=== PATIENT | male | born 1945 | race Caucasian/White ===

== ENCOUNTER 2018-12-06 10:18 | Day surgery (SDC) | payer MEDICARE, BC ==
[~2018-12-06] VITALS: Ht 170.2 cm; Wt 71.8 kg
[2018-12-06] VITALS (9 sets, daily range): BP systolic 107–171; BP diastolic 67–94
[2018-12-06] MEDS ORDERED: normal saline 1,000 ML IV SCH (10:35)
[2018-12-06] MEDS ORDERED: diphenhydrAMINE 25mg capsule PO PRN (10:35)
[2018-12-06] MEDS ORDERED: FOLI0.4T2 PO (11:24)
[2018-12-06] MEDS ORDERED: CHOL200052 PO (11:24)
[2018-12-06] MEDS ORDERED: CARV6.252 PO (11:24)
[2018-12-06] MEDS ORDERED: ALLO100T PO (11:24)
[2018-12-06] MEDS ORDERED: LISI-604 PO (11:24)
[2018-12-06] MEDS ORDERED: FURO40TA4 PO (11:24)
[2018-12-06] MEDS ORDERED: FERR-119 PO (11:24)
[2018-12-06] MEDS ORDERED: ASPI-611 PO (11:24)
[2018-12-06] MEDS ORDERED: CHOL2000 PO (11:24)
[2018-12-06] MEDS ORDERED: MULT-933 PO (11:24)
[2018-12-06] MEDS ORDERED: CYAN-51 PO (11:24)
[2018-12-06 11:31] LABS: EOSINOPHILS # (AUTO) 0.5 X10'3 (0-0.9); HEMATOCRIT 34.3 % (42.0-52.0); HEMOGLOBIN 11.6 g/dl (14.0-17.9); MEAN CORPUSCULAR HGB CONC 33.9 g/dL (33.0-36.5)
[2018-12-06 11:32] LABS: ANION GAP 13 (8-16); BLOOD UREA NITROGEN 54 MG/DL (7-18); BUN/CREATININE RATIO 22.3 (5.4-32.0); CALCIUM 9.9 MG/DL (8.5-10.1); CHLORIDE 103 MMOL/L (99-107); CREATININE 2.42 MG/DL (0.60-1.10); GLUCOSE 93 MG/DL (70-104); POTASSIUM 4.2 MMOL/L (3.5-5.1); SODIUM 142 MMOL/L (135-145); TOTAL CARBON DIOXIDE 25.6 MMOL/L (24-32); eGFR 26 ML/MIN
[2018-12-06 11:33] LABS: BASOPHILS # (AUTO) 0.1 X10'3 (0-0.2); BASOPHILS % (AUTO) 1.6 % (0-1); EOSINOPHILS % (AUTO) 5.9 % (0-6); LYMPHOCYTES # (AUTO) 1.3 X10'3 (1.1-4.8); LYMPHOCYTES % (AUTO) 14.6 % (21-51); MEAN CORPUSCULAR VOLUME 94.5 FL (78-98); MEAN PLATELET VOLUME 9.3 FL (7.4-10.4); MONOCYTES # (AUTO) 0.9 X10'3 (0-0.9); MONOCYTES % (AUTO) 9.6 % (2-12); NEUTROPHILS # (AUTO) 6.1 X10'3 (1.8-7.7); NEUTROPHILS % (AUTO) 68.3 % (42-75); PLATELET COUNT 289 X10'3 (140-440); RED BLOOD COUNT 3.63 X10'6 (4.70-6.10); RED CELL DISTRIBUTION WIDTH 15.9 % (11.5-14.5)
[2018-12-06] MEDS ORDERED: midazolam 2 mg/2 ml injection ONE ×2 (12:21→12:56)
[2018-12-06] MEDS ORDERED: iohexol 350MG/ML 100ml bottle IV ONE (12:21)
[2018-12-06] MEDS ORDERED: LIDOcaine 1% (10mg/ml)w/preservative injection 20ml MDV ONE (12:21)
[2018-12-06] MEDS ORDERED: fentaNYL/PF 50MCG/1 ML 2ML syringe ONE (12:21)
== END 2018-12-06 16:30 | disposition home or self-care (01) ==
LOC: SSTAY O 10:18
PROVIDERS: ATTEND Internal Medicine Cardiovascular Disease
DX: I42.0 Dilated cardiomyopathy (principal); I10 Essential (primary) hypertension; D64.9 Anemia, unspecified; F17.210 Nicotine dependence, cigarettes, uncomplicated; Z98.890 Other specified postprocedural states; Z72.89 Other problems related to lifestyle; Z79.899 Other long term (current) drug therapy
CPT/HCPCS: 36415; 80048; 85025; 85610; 93005; 93458; 99152; C1769; C1894; J1644; J2001; J2250; J3010; J7030; Q0163; Q9967; A4620; A6258; C1760

== ENCOUNTER 2020-10-09 08:29 | Inpatient (IN) | payer MEDICARE, BC ==
[~2020-10-09] VITALS: Ht 175.3 cm; Wt 61.4 kg
[~2020-10-09 08:29] MED LIST: ALLO100T PO; ASPI-611 PO; CARV6.252 PO; CHOL2000 PO; CHOL200052 PO; CYAN-51 PO; FERR-119 PO; FOLI0.4T6 PO; FURO40TA4 PO; LISI-790 PO; MULT-933 PO
[2020-10-09 09:35] LABS: BASOPHILS # (AUTO) 0.1 X10'3 (0-0.2); HEMOGLOBIN 8.5 g/dl (14.0-17.9); WHITE BLOOD COUNT 14.8 X10'3 (4.5-11.0)
[2020-10-09 09:36] LABS: BASOPHILS % (AUTO) 0.7 % (0-1); EOSINOPHILS # (AUTO) 0.3 X10'3 (0-0.9); EOSINOPHILS % (AUTO) 1.8 % (0-6); HEMATOCRIT 25.7 % (42.0-52.0); LYMPHOCYTES % (AUTO) 6.7 % (21-51); MEAN CORPUSCULAR HEMOGLOBIN 32.3 PG (27.0-31.0); MEAN CORPUSCULAR HGB CONC 33.1 g/dL (33.0-36.5); MEAN CORPUSCULAR VOLUME 97.7 FL (78-98); MONOCYTES # (AUTO) 1.5 X10'3 (0-0.9); MONOCYTES % (AUTO) 10.2 % (2-12); NEUTROPHILS % (AUTO) 80.6 % (42-75); PLATELET COUNT 626 X10'3 (140-440); RED BLOOD COUNT 2.64 X10'6 (4.70-6.10); RED CELL DISTRIBUTION WIDTH 15.2 % (11.5-14.5)
[2020-10-09] MEDS ORDERED: normal saline 1000ml 1,000 ML IV ONE (09:40)
[2020-10-09 09:43] LABS: PARTIAL THROMBOPLASTIN TIME 33 SECONDS (22-32)
[2020-10-09] MEDS ORDERED: vancomycin/NS 1 GM ADD-VANTAGE 250 ML IV ONE (09:50)
[2020-10-09] MEDS ORDERED: normal saline 1000ML IV soln IV ONE (09:50)
[2020-10-09] MEDS ORDERED: piperacillin/tazo 3.375gm/50ml 50 ML IV ONE (09:50)
[2020-10-09 10:16] LABS: ALANINE AMINOTRANSFERASE 12 U/L (12-78); ALBUMIN 2.4 G/DL (3.4-5.0); ALBUMIN/GLOBULIN RATIO 0.6 (1.1-1.5); ALKALINE PHOSPHATASE 63 IU/L (46-116); ANION GAP 13 (8-16); ASPARTATE AMINO TRANSFERASE 14 U/L (10-37); BILIRUBIN,TOTAL 0.5 MG/DL (0.1-1.0); BLOOD UREA NITROGEN 40 MG/DL (7-18); BUN/CREATININE RATIO 22.7 (5.4-32.0); CALCIUM 9.8 MG/DL (8.5-10.1); CHLORIDE 106 MMOL/L (99-107); CREATININE 1.76 MG/DL (0.60-1.10); GLUCOSE 105 MG/DL (70-104); MAGNESIUM 1.8 MG/DL (1.5-2.4); SODIUM 144 MMOL/L (135-145); TOTAL CARBON DIOXIDE 24.6 MMOL/L (24-32); TOTAL PROTEIN 6.6 G/DL (6.4-8.2); eGFR 38 ML/MIN
[2020-10-09 10:17] LABS: POTASSIUM 2.9 MMOL/L (3.5-5.1)
[2020-10-09] MEDS ORDERED: potassium Cl 20 mEq SR tablet PO ONE (10:25)
[2020-10-09] MEDS ORDERED: potassium Cl 10 mEq/100mL bag IV ONE (10:25)
[2020-10-09] MEDS ORDERED: iohexol 300mg/ml 100ml inj. ONE (10:29)
--- NOTE | 2020-10-09 12:10 | NUR ---
LAST SOLID FOOD THURSDAY AFTERNOON LAST LIQUID 0700 TODAY
[2020-10-09] MEDS ORDERED: CARV-50 PO (13:16)
[2020-10-09] MEDS ORDERED: LISI40TA13 PO (13:16)
[2020-10-09] MEDS ORDERED: [UNRECOGNIZED DRUG - CODE] PO (13:16)
[2020-10-09] MEDS ORDERED: METR-159 PO (13:16)
[2020-10-09] MEDS ORDERED: FURO40TA4 PO (13:16)
[2020-10-09] MEDS ORDERED: ALLO100T PO (13:16)
[2020-10-09] MEDS ORDERED: ondansetron/PF 4mg/2ml inj IV PRN (13:20)
[2020-10-09] MEDS ORDERED: acetaminophen 325mg tablet PO PRN (13:20)
[2020-10-09] MEDS ORDERED: magnesium 4gm in 100ml NS 100 ML IV PRN (13:20)
[2020-10-09] MEDS ORDERED: morphine 2 MG/ML inj. syringe IV PRN (13:20)
[2020-10-09] MEDS ORDERED: potassium Cl 20 mEq SR tablet PO PRN (13:20)
[2020-10-09] MEDS ORDERED: magnesium 2GM in 50ml NS 50 ML IV PRN (13:20)
[2020-10-09] MEDS ORDERED: magnesium hydroxide 30ml (MOM) UD suspension PO PRN (13:20)
[2020-10-09] MEDS ORDERED: potassium Cl 40MEQ/1/2NS 520ml 520 ML IV PRN ×2 (13:20)
[2020-10-09] MEDS ORDERED: normal saline 1000ml 1,000 ML IV SCH (13:20)
[2020-10-09] MEDS ORDERED: magnesium Cl slow-release 64mg tablet PO PRN (13:20)
[2020-10-09 13:21] LABS: CLARITY,URINE SLIGHTLY CLOUDY (Clear); COLOR,URINE YELLOW (Yellow); GLUCOSE, URINE NEGATIVE (Neg); KETONES,URINE NEGATIVE (Neg); LEUKOCYTE ESTERASE ,URINE MODERATE (Neg); NITRITES, URINE NEGATIVE (Neg); OCCULT BLOOD,URINE NEGATIVE (Neg); PH,URINE 5.5 (4.8-8.0); PROTEIN,URINE NEGATIVE (Neg); UROBILINOGEN,URINE 0.2 E.U/dL (0.2-1.0)
[2020-10-09 13:22] LABS: UA COLLECTION TYPE URINAL
[2020-10-09 13:26] LABS: WBC,URINE TNTC /HPF (0-4)
[2020-10-09 13:27] LABS: BACTERIA,URINE FEW /HPF (Neg); MUCUS STRANDS NONE SEEN /LPF (Neg); RBC,URINE NONE SEEN /HPF (0-2); SQUAMOUS EPITHELIAL CELL,UR NONE SEEN /LPF (FEW)
[2020-10-09 13:28] LABS: YEAST FEW /HPF (NEGATIVE)
[2020-10-09 14:10] VITALS: BP 137/87
[2020-10-09 14:16] LABS: HEMOGLOBIN A1C 5.6 % (4.5-6.2)
--- NOTE | 2020-10-09 14:25 | NUR ---
dr irwin at bedside and placed abdominal abcess drain: frothy white drainage: 350 ml so far
[2020-10-09 14:30] VITALS: BP 130/67
--- NOTE | 2020-10-09 14:32 | NUR ---
TOMAS CORDON TOOK PERITONEAL FLUID WITHLABEL: BRAVO IS AWARE THAT THE LABEL ON THE FLUID NEEDS TO BE FILLED OUT. I PLACED ORDERS FOR DR HARRIS FOR CULTURE OF FLUID
--- NOTE | 2020-10-09 14:33 | NUR ---
leanna drain to bulb sxn with site cdi
[2020-10-09] MEDS ORDERED: VANCOmycin 1250MG/NS 250ml Bag 250 ML IV ONE (14:35)
--- NOTE | 2020-10-09 16:00 | NUR ---
CALLING PHARMACY TO CLARIFY VANCOMYCIN DOSES, INFORMED ONE GRAM OF VANCOMYCIN IV STARTED AT 1108; DO NOT GIVE THE ORDERED 1250 MG VANCOMYCIN IV
[2020-10-09] MEDS: piperacillin/tazo 3.375gm/50ml 50 ML IV SCH (16:22)
[2020-10-09] MEDS: normal saline 1000ml 1,000 ML IV SCH (16:23)
[2020-10-09] MEDS ORDERED: LISI-790 PO (16:34)
[2020-10-09] MEDS ORDERED: FOLI0.4T6 PO (16:36)
[2020-10-09] MEDS ORDERED: CYAN-51 PO (16:36)
[2020-10-09] MEDS ORDERED: CHOL2000 PO (16:36)
[2020-10-09] MEDS ORDERED: ASPI-611 PO (16:36)
[2020-10-09] MEDS ORDERED: FERR325T32 PO (16:36)
[2020-10-09] MEDS ORDERED: MULT-933 PO (16:36)
[2020-10-09 17:59] VITALS: BP 117/52
[2020-10-09 18:04] VITALS: BP 117/52
--- NOTE | 2020-10-09 18:39 | NUR ---
Problems reprioritized. Patient report given, questions answered & plan of care reviewed with Patricia DELGADO.
--- NOTE | 2020-10-09 18:42 | NUR ---
Patient in room [facility] 348. I have received report from DANNY Laboy and had the opportunity to ask questions and assume patient care.
--- NOTE | 2020-10-09 18:42 | NUR ---
Patient in room [facility] 348. I have received report from DANNY Laboy and had the opportunity to ask questions and assume patient care.
[2020-10-09 20:00] VITALS: BP 145/59
[2020-10-09] MEDS: heparin, porcine 5000 units/ml vial SQ SCH (20:00)
[2020-10-09] MEDS ORDERED: ferrous sulfate 325mg tablet PO SCH (20:00)
[2020-10-09] MEDS: K and/or MAG REPLACEMENT MC SCH (20:00)
[2020-10-09] MEDS ORDERED: enoxaparin 40mg/0.4ml syringe SQ SCH (20:00)
[2020-10-09] MEDS: docusate sod 100mg capsule PO SCH (20:38)
[2020-10-09] MEDS: furosemide 40mg tablet PO SCH (20:41)
[2020-10-09] MEDS: carVEDilol 12.5mg tablet PO SCH (20:42)
[2020-10-09] MEDS: potassium Cl 20 mEq SR tablet PO PRN (20:53)
[2020-10-09] MEDS ORDERED: ferrous sulfate 325mg tablet PO ONE (23:25)
[2020-10-10] VITALS: BP 136/61
[2020-10-10] MEDS: piperacillin/tazo 3.375gm/50ml 50 ML IV SCH ×4 (00:37→23:14)
[2020-10-10] MEDS: normal saline 1000ml 1,000 ML IV SCH ×3 (01:55→23:15)
[2020-10-10] MEDS: potassium Cl 20 mEq SR tablet PO PRN (02:42)
[2020-10-10 05:49] LABS: BASOPHILS # (AUTO) 0.1 X10'3 (0-0.2); BASOPHILS % (AUTO) 0.7 % (0-1); EOSINOPHILS # (AUTO) 0.3 X10'3 (0-0.9); EOSINOPHILS % (AUTO) 1.7 % (0-6); HEMATOCRIT 23.5 % (42.0-52.0); HEMOGLOBIN 7.7 g/dl (14.0-17.9); LYMPHOCYTES # (AUTO) 0.8 X10'3 (1.1-4.8); LYMPHOCYTES % (AUTO) 4.4 % (21-51); MEAN CORPUSCULAR HEMOGLOBIN 32.2 PG (27.0-31.0); MEAN CORPUSCULAR HGB CONC 32.8 g/dL (33.0-36.5); MEAN CORPUSCULAR VOLUME 98.2 FL (78-98); MEAN PLATELET VOLUME 9.1 FL (7.4-10.4); MONOCYTES # (AUTO) 1.7 X10'3 (0-0.9); MONOCYTES % (AUTO) 9.5 % (2-12); NEUTROPHILS # (AUTO) 14.6 X10'3 (1.8-7.7); NEUTROPHILS % (AUTO) 83.7 % (42-75); PLATELET COUNT 588 X10'3 (140-440); RED BLOOD COUNT 2.39 X10'6 (4.70-6.10); RED CELL DISTRIBUTION WIDTH 15.3 % (11.5-14.5); WHITE BLOOD COUNT 17.4 X10'3 (4.5-11.0)
--- NOTE | 2020-10-10 06:21 | NUR ---
Problems reprioritized. Patient report given, questions answered & plan of care reviewed with DANNY Agudelo.
[2020-10-10 06:25] LABS: ALANINE AMINOTRANSFERASE 8 U/L (12-78); ALBUMIN/GLOBULIN RATIO 0.5 (1.1-1.5); ALKALINE PHOSPHATASE 61 IU/L (46-116); ANION GAP 13 (8-16); ASPARTATE AMINO TRANSFERASE 12 U/L (10-37); BILIRUBIN,TOTAL 0.4 MG/DL (0.1-1.0); BLOOD UREA NITROGEN 31 MG/DL (7-18); BUN/CREATININE RATIO 19.5 (5.4-32.0); CALCIUM 8.9 MG/DL (8.5-10.1); CHLORIDE 111 MMOL/L (99-107); CHOL/HDL RATIO 4.3 (0.00-4.99); CHOLESTEROL 102 MG/DL (0-200); CREATININE 1.59 MG/DL (0.60-1.10); GLUCOSE 125 MG/DL (70-104); HDL CHOLESTEROL 24 MG/DL (35-60); LDL CHOLESTEROL 50 MG/DL (50-100); MAGNESIUM 1.7 MG/DL (1.5-2.4); POTASSIUM 3.5 MMOL/L (3.5-5.1); SODIUM 144 MMOL/L (135-145); TOTAL PROTEIN 5.9 G/DL (6.4-8.2); TRIGLYCERIDES 101 MG/DL (20-135); eGFR 42 ML/MIN
[2020-10-10 07:03] VITALS: BP 121/55
--- NOTE | 2020-10-10 07:19 | NUR ---
Patient in room [facility] 348. I have received report from Tiesha Yuan RN and had the opportunity to ask questions and assume patient care.
[2020-10-10] MEDS: docusate sod 100mg capsule PO SCH (07:27)
[2020-10-10] MEDS: lisinopril 5mg tablet PO SCH (07:31)
[2020-10-10] MEDS: allopurinol 100mg tablet PO SCH (07:31)
[2020-10-10] MEDS: multivitamins, therapeutics tablet PO SCH (07:32)
[2020-10-10] MEDS: furosemide 40mg tablet PO SCH ×2 (07:32→20:00)
[2020-10-10] MEDS: aspirin 81mg tablet.DR PO SCH (07:32)
[2020-10-10] MEDS: cholecalciferol (vitamin D3) 1,000 unit (25mcg) tablet PO SCH (07:32)
[2020-10-10] MEDS: carVEDilol 12.5mg tablet PO SCH ×2 (07:32→20:02)
[2020-10-10] MEDS: cyanocobalamin 500mcg tablet PO SCH (07:32)
[2020-10-10] MEDS: folic acid 0.4mg tablet PO SCH (07:33)
[2020-10-10] MEDS: heparin, porcine 5000 units/ml vial SQ SCH ×2 (07:35→20:09)
[2020-10-10] MEDS ORDERED: enoxaparin 40mg/0.4ml syringe SUBCUT SCH (08:00)
[2020-10-10] MEDS: K and/or MAG REPLACEMENT MC SCH ×2 (08:00→20:00)
[2020-10-10] MEDS ORDERED: lisinopril 5mg tablet PO SCH (08:00)
--- NOTE | 2020-10-10 09:48 | NUR ---
PAGER ID: [phone] MESSAGE: [facility] 0113 Re: Stanton please call re: stool sample orders. Per your notes you want a Cdiff and and OP
[2020-10-10 11:00] VITALS: BP 133/60
[2020-10-10] MEDS: VANCOMYCIN 750MG IV in NS 250 ML IV SCH (11:12)
[2020-10-10] MEDS: ferrous sulfate 325mg tablet PO SCH ×2 (11:13→23:15)
[2020-10-10 11:43] LABS: OCCULT BLOOD STOOL NEGATIVE (Neg)
--- NOTE | 2020-10-10 12:47 | NUR ---
Malnutrition consult: Pt seen at bedside reports UBW 165 lbs with 30 lb wt loss over the last 6 months, current documented scaled wt is 135 lbs. 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 Pt endorses a good appetite which is evident with documented 75-100% PO intake on heart healthy diet. Pt states he is getting full from meals. Pt with no documented decrease in muscle strength or edema. No visible fat or muscle wasting. 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 Pt currently lacks a minimum of two criteria for malnutrition. Pt denies food allergies or difficulty chewing/swallowing. Pt reports he continues with diarrhea, pending test for C.diff per MD notes. Will continue to follow. Addendum: 10/10/20 at [address] Amended: Links added.
[2020-10-10 15:33] LABS: C DIFF ANTIGEN POSITIVE (NEGATIVE); C DIFF SPECIMEN=DIARRHEA? ACCEPTABLE; C DIFFICILE TOXINS A&B POSITIVE (Neg)
--- NOTE | 2020-10-10 16:28 | NUR ---
PAGER ID: [phone] MESSAGE: [facility] [id number] Re: [id number] Stanton + Cdiff please call
--- NOTE | 2020-10-10 17:21 | NUR ---
Tried to call patients Alena back at [phone] and her voicemail is not set up yet.
[2020-10-10 18:00] VITALS: BP 148/71
--- NOTE | 2020-10-10 18:32 | NUR ---
Problems reprioritized. Patient report given, questions answered & plan of care reviewed with Nata DELGADO.
--- NOTE | 2020-10-10 18:33 | NUR ---
Patient in room [facility] 348. I have received report from Jammie SHEIKH and had the opportunity to ask questions and assume patient care.
[2020-10-10] MEDS: vancomycin 125mg/5ml ORAL solution 5ml UD bottle PO SCH (20:00)
[2020-10-10] MEDS: lactobacillus rhamnosus 10,000 MMU CELLS/CAPSULE PO SCH (20:00)
[2020-10-10 22:00] VITALS: BP 151/73
[2020-10-10] MEDS: diatr meglu/diatrizoate 30ml oral sol.-(3 dose) bottle PO SCH (22:01)
[2020-10-11] VITALS (17 sets, daily range): BP systolic 128–159; BP diastolic 65–86
[2020-10-11] MEDS: vancomycin 125mg/5ml ORAL solution 5ml UD bottle PO SCH ×4 (02:00→20:43)
--- NOTE | 2020-10-11 06:24 | NUR ---
Problems reprioritized. Patient report given, questions answered & plan of care reviewed with
--- NOTE | 2020-10-11 06:40 | NUR ---
Patient in room [facility] 348. I have received report from Nata DELGADO and had the opportunity to ask questions and assume patient care.
[2020-10-11 06:45] LABS: BASOPHILS # (AUTO) 0.1 X10'3 (0-0.2); BASOPHILS % (AUTO) 0.8 % (0-1); EOSINOPHILS # (AUTO) 0.7 X10'3 (0-0.9); HEMATOCRIT 22.4 % (42.0-52.0); HEMOGLOBIN 7.5 g/dl (14.0-17.9); LYMPHOCYTES # (AUTO) 0.9 X10'3 (1.1-4.8); LYMPHOCYTES % (AUTO) 7.1 % (21-51); MEAN CORPUSCULAR HEMOGLOBIN 32.7 PG (27.0-31.0); MEAN CORPUSCULAR HGB CONC 33.3 g/dL (33.0-36.5); MEAN CORPUSCULAR VOLUME 98.5 FL (78-98); MEAN PLATELET VOLUME 9.2 FL (7.4-10.4); MONOCYTES # (AUTO) 1.4 X10'3 (0-0.9); MONOCYTES % (AUTO) 10.6 % (2-12); NEUTROPHILS # (AUTO) 10.2 X10'3 (1.8-7.7); NEUTROPHILS % (AUTO) 76.5 % (42-75); PLATELET COUNT 531 X10'3 (140-440); RED BLOOD COUNT 2.28 X10'6 (4.70-6.10); RED CELL DISTRIBUTION WIDTH 15.5 % (11.5-14.5); WHITE BLOOD COUNT 13.3 X10'3 (4.5-11.0)
[2020-10-11 06:54] LABS: % IRON SATURATION 59 % (11-46); IRON 41 UG/DL (53-167); TOTAL IRON BINDING CAPACITY 70 UG/DL (259-388)
[2020-10-11 07:25] LABS: ALANINE AMINOTRANSFERASE 8 U/L (12-78); ALBUMIN 1.9 G/DL (3.4-5.0); ALBUMIN/GLOBULIN RATIO 0.5 (1.1-1.5); ALKALINE PHOSPHATASE 50 IU/L (46-116); ANION GAP 11 (8-16); ASPARTATE AMINO TRANSFERASE 13 U/L (10-37); BILIRUBIN,TOTAL 0.3 MG/DL (0.1-1.0); BLOOD UREA NITROGEN 28 MG/DL (7-18); BUN/CREATININE RATIO 16.7 (5.4-32.0); CALCIUM 9.1 MG/DL (8.5-10.1); CHLORIDE 113 MMOL/L (99-107); CREATININE 1.68 MG/DL (0.60-1.10); FERRITIN 336 NG/ML (26-388); GLUCOSE 103 MG/DL (70-104); MAGNESIUM 1.7 MG/DL (1.5-2.4); POTASSIUM 3.8 MMOL/L (3.5-5.1); SODIUM 143 MMOL/L (135-145); TOTAL CARBON DIOXIDE 18.9 MMOL/L (24-32); TOTAL PROTEIN 5.8 G/DL (6.4-8.2); eGFR 40 ML/MIN
[2020-10-11] MEDS: heparin, porcine 5000 units/ml vial SQ SCH ×2 (08:00→20:44)
[2020-10-11] MEDS: K and/or MAG REPLACEMENT MC SCH ×2 (08:00→20:00)
[2020-10-11] MEDS: normal saline 1000ml 1,000 ML IV SCH (08:15)
[2020-10-11] MEDS: piperacillin/tazo 3.375gm/50ml 50 ML IV SCH ×3 (08:20→23:26)
[2020-10-11] MEDS: aspirin 81mg tablet.DR PO SCH (08:20)
[2020-10-11] MEDS: lactobacillus rhamnosus 10,000 MMU CELLS/CAPSULE PO SCH ×2 (08:21→20:43)
[2020-10-11] MEDS: allopurinol 100mg tablet PO SCH (08:21)
[2020-10-11] MEDS: cyanocobalamin 500mcg tablet PO SCH (08:21)
[2020-10-11] MEDS: folic acid 0.4mg tablet PO SCH (08:21)
[2020-10-11] MEDS: diatr meglu/diatrizoate 30ml oral sol.-(3 dose) bottle PO SCH ×2 (08:21→09:26)
[2020-10-11] MEDS: lisinopril 5mg tablet PO SCH (08:22)
[2020-10-11] MEDS: carVEDilol 12.5mg tablet PO SCH ×2 (08:22→20:43)
[2020-10-11] MEDS: furosemide 40mg tablet PO SCH ×2 (08:22→20:43)
[2020-10-11] MEDS: cholecalciferol (vitamin D3) 1,000 unit (25mcg) tablet PO SCH (08:22)
[2020-10-11] MEDS: multivitamins, therapeutics tablet PO SCH (08:22)
[2020-10-11] MEDS ORDERED: diatr meglu/diatrizoate 30ml oral sol.-(3 dose) bottle ONE (09:09)
--- NOTE | 2020-10-11 09:37 | NUR ---
pt off floor for CT scan
--- NOTE | 2020-10-11 10:30 | NUR ---
pt back on floor from CT
[2020-10-11] MEDS: ferrous sulfate 325mg tablet PO SCH ×2 (11:00→23:27)
[2020-10-11] MEDS: VANCOMYCIN 750MG IV in NS 250 ML IV SCH (11:00)
[2020-10-11] MEDS ORDERED: ondansetron/PF 4mg/2ml inj IV PRN ×2 (13:35→18:00)
[2020-10-11] MEDS ORDERED: morphine 4 MG/ML inj SYRINge IV PRN (13:35)
[2020-10-11] MEDS ORDERED: morphine 2 MG/ML inj. syringe IV PRN (13:35)
[2020-10-11] MEDS ORDERED: meperidine/PF 25mg/ml syringe IV PRN ×3 (13:35)
[2020-10-11] MEDS ORDERED: hydrALAZINE 20mg/ml inj. IV PRN (13:35)
[2020-10-11] MEDS ORDERED: proCHLORperazine 10 MG/2 ml inj IV PRN (13:35)
[2020-10-11] MEDS ORDERED: ringers solution, lacted 1,000 ML IV SCH (13:35)
[2020-10-11] MEDS ORDERED: labetalol 20mg/4ml (5mg/ml) syringe IV PRN (13:35)
[2020-10-11] MEDS ORDERED: acetaminophen 1,000mg/100ml IV 100 ML IV PRN (13:35)
[2020-10-11] MEDS ORDERED: sevoflurane 250ml liquid IH ONE (14:24)
[2020-10-11] MEDS ORDERED: albumin (Human) 5% 250ml BOTTLE IV ONE (14:24)
--- NOTE | 2020-10-11 14:24 | NUR ---
1600 Zosyn IVPB delivered to RR (bed 9) per CLINICAL TRIAL EDUCATOR request.
[2020-10-11] MEDS ORDERED: BUPIVAcaine/PF 2.5mg/ml (0.25%) 10ml vial ONE ×2 (14:26→14:27)
[2020-10-11] MEDS ORDERED: BUPIVACAINE liposomal/PF 13.3 MG/ML vial IM ONE ×2 (14:26→14:27)
[2020-10-11] MEDS ORDERED: midazolam 1 mg/ML 2ml injection ONE (14:31)
[2020-10-11] MEDS ORDERED: fentaNYL /PF 50mcg/ml 5ml ampule ONE (15:31)
[2020-10-11] MEDS ORDERED: dexamethasone sod phosphate 4mg/ml inj. ONE (15:32)
[2020-10-11] MEDS ORDERED: ondansetron/PF 4mg/2ml inj ONE (15:33)
[2020-10-11] MEDS ORDERED: rocuronium 10mg/ml inj IV ONE ×2 (15:33→16:05)
[2020-10-11] MEDS ORDERED: propofol inj 20 ML IV ONE ×2 (15:33)
[2020-10-11] MEDS ORDERED: LIDOcaine 1%/PF 5ML 10 MG/ML VIAL ONE (15:33)
[2020-10-11] MEDS ORDERED: albumin (Human) 5% 250ml 250 ML IV ONE (16:15)
[2020-10-11] MEDS ORDERED: glycopyrrolate 0.2mg/ml inj ONE (17:38)
[2020-10-11] MEDS ORDERED: neostigmine methylsulfate 1 MG/ML 10ml vial ONE (17:38)
--- NOTE | 2020-10-11 18:00 | NUR ---
Received from OR via bed, accompanied by Anesthesiologist erma and report given by Anesthesiolgist. pt sleepy, oxygenating well on 10 lpm o2 via mask, no resp distress noted. no c/o nausea at this time. very mild abd pain, pt had bilateral tap blocks. large abd dsg in place with medifix tape, 2 leanna drains to area with small amt of serosang output in each. fc patent, scds on. vss.
--- NOTE | 2020-10-11 18:28 | NUR ---
Patient in room [facility] 348. I have received report from DANNY Drummond and had the opportunity to ask questions and assume patient care. Patient is in recovery room at this time
--- NOTE | 2020-10-11 18:55 | NUR ---
Report called to receiving nurse. Transferred via bed Belongings in pt room, except he has his glaases and b hearing aids on at the time of transfer. pt pain is mild/mod, he was offered pain meds x 2 with no response. vss. mouth moisturizer provided. transferred back to to 3 surg in stable condition. Special Issues communicated to receiving nurse.
--- NOTE | 2020-10-11 19:45 | NUR ---
received post operative report on patient from Tiffany RN in recovery, had an opportunity to review chart and resume care
[2020-10-11] MEDS: HYDROmorphone inj. 0.5 MG/0.5 ML DISP.SYRIN IV PRN (20:45)
[2020-10-11] MEDS: HYDROcodone/acetaminophen 5mg/325mg tablet PO PRN (23:45)
[2020-10-12 00:28] VITALS: BP 159/85
[2020-10-12] MEDS: vancomycin 125mg/5ml ORAL solution 5ml UD bottle PO SCH ×4 (02:53→21:56)
[2020-10-12] MEDS: normal saline 1000ml 1,000 ML IV SCH ×4 (02:53→23:33)
[2020-10-12] MEDS: morphine 2 MG/ML inj. syringe IV PRN ×2 (03:00→21:56)
--- NOTE | 2020-10-12 06:11 | NUR ---
I agree with the documentation, assessments, and report that DANNY Onofre has given. Report was given to DANNY Drummond
--- NOTE | 2020-10-12 06:28 | NUR ---
Patient in room [facility] 348. I have received report from Kingston DELGADO and had the opportunity to ask questions and assume patient care.
--- NOTE | 2020-10-12 06:30 | NUR ---
Problems reprioritized. Patient report given, questions answered & plan of care reviewed with Bhanu DELGADO.
[2020-10-12 08:00] VITALS: BP 149/87
[2020-10-12] MEDS: cyanocobalamin 500mcg tablet PO SCH (08:00)
[2020-10-12] MEDS: piperacillin/tazo 3.375gm/50ml 50 ML IV SCH ×3 (08:07→23:35)
[2020-10-12] MEDS: heparin, porcine 5000 units/ml vial SQ SCH ×2 (08:08→21:57)
[2020-10-12] MEDS: allopurinol 100mg tablet PO SCH (08:08)
[2020-10-12] MEDS: cholecalciferol (vitamin D3) 1,000 unit (25mcg) tablet PO SCH (08:09)
[2020-10-12] MEDS: folic acid 0.4mg tablet PO SCH (08:09)
[2020-10-12] MEDS: lactobacillus rhamnosus 10,000 MMU CELLS/CAPSULE PO SCH ×2 (08:09→21:56)
[2020-10-12] MEDS: carVEDilol 12.5mg tablet PO SCH ×2 (08:09→21:56)
[2020-10-12] MEDS: aspirin 81mg tablet.DR PO SCH (08:09)
[2020-10-12] MEDS: multivitamins, therapeutics tablet PO SCH (08:10)
[2020-10-12] MEDS: lisinopril 5mg tablet PO SCH (08:10)
[2020-10-12] MEDS: furosemide 40mg tablet PO SCH ×2 (08:10→21:56)
[2020-10-12] MEDS: K and/or MAG REPLACEMENT MC SCH ×2 (08:34→20:00)
[2020-10-12 08:45] LABS: BASOPHILS # (AUTO) 0.1 X10'3 (0-0.2); BASOPHILS % (AUTO) 0.2 % (0-1); EOSINOPHILS % (AUTO) 0 % (0-6); HEMATOCRIT 32.3 % (42.0-52.0); HEMOGLOBIN 10.5 g/dl (14.0-17.9); LYMPHOCYTES # (AUTO) 0.8 X10'3 (1.1-4.8); LYMPHOCYTES % (AUTO) 2.7 % (21-51); MEAN CORPUSCULAR HEMOGLOBIN 31.2 PG (27.0-31.0); MEAN CORPUSCULAR HGB CONC 32.6 g/dL (33.0-36.5); MEAN CORPUSCULAR VOLUME 95.6 FL (78-98); MEAN PLATELET VOLUME 9.2 FL (7.4-10.4); MONOCYTES # (AUTO) 1.5 X10'3 (0-0.9); MONOCYTES % (AUTO) 5.2 % (2-12); NEUTROPHILS # (AUTO) 26.2 X10'3 (1.8-7.7); NEUTROPHILS % (AUTO) 91.9 % (42-75); PLATELET COUNT 573 X10'3 (140-440); RED BLOOD COUNT 3.38 X10'6 (4.70-6.10); RED CELL DISTRIBUTION WIDTH 16.8 % (11.5-14.5)
[2020-10-12 08:54] LABS: WHITE BLOOD COUNT 28.5 X10'3 (4.5-11.0)
--- NOTE | 2020-10-12 09:07 | NUR ---
PAGER ID: [phone] MESSAGE: arnold Kahlil Eid 348A critical lab result WBC 28.5, Dr. Blair notified verbally as well, stated expected result. Thanks, Bhanu 0255
[2020-10-12 09:17] LABS: ANISOCYTOSIS 1+; PLATELET ESTIMATE INCREASED; TOTAL CELLS COUNTED 100
[2020-10-12 09:18] LABS: SCHISTOCYTES FEW
[2020-10-12] MEDS ORDERED: VANCOMYCIN LEVEL IV ONE (10:30)
[2020-10-12 11:00] VITALS: BP 151/75
[2020-10-12 11:03] LABS: ALANINE AMINOTRANSFERASE 12 U/L (12-78); ALBUMIN/GLOBULIN RATIO 0.5 (1.1-1.5); ALKALINE PHOSPHATASE 45 IU/L (46-116); ANION GAP 12 (8-16); ASPARTATE AMINO TRANSFERASE 14 U/L (10-37); BILIRUBIN,TOTAL 0.4 MG/DL (0.1-1.0); BLOOD UREA NITROGEN 26 MG/DL (7-18); BUN/CREATININE RATIO 14.2 (5.4-32.0); CHLORIDE 113 MMOL/L (99-107); CREATININE 1.83 MG/DL (0.60-1.10); GLUCOSE 135 MG/DL (70-104); MAGNESIUM 1.6 MG/DL (1.5-2.4); POTASSIUM 3.9 MMOL/L (3.5-5.1); SODIUM 146 MMOL/L (135-145); TOTAL CARBON DIOXIDE 21.3 MMOL/L (24-32); TOTAL PROTEIN 5.9 G/DL (6.4-8.2); eGFR 36 ML/MIN
[2020-10-12 11:52] VITALS: BP 162/93
[2020-10-12] MEDS: VANCOMYCIN 750MG IV in NS 250 ML IV SCH (12:26)
[2020-10-12] MEDS: ferrous sulfate 325mg tablet PO SCH ×2 (12:26→23:35)
[2020-10-12] MEDS: HYDROcodone/acetaminophen 5mg/325mg tablet PO PRN (13:37)
[2020-10-12] MEDS: HYDROmorphone inj. 0.5 MG/0.5 ML DISP.SYRIN IV PRN (17:12)
[2020-10-12 18:00] VITALS: BP 147/72
--- NOTE | 2020-10-12 19:02 | NUR ---
Patient in room [facility] 348. I have received report from Bhanu DELGADO and had the opportunity to ask questions and assume patient care.
[2020-10-12] MEDS: mag hydrox/Alum hydrox/simeth 30ml oral suspension PO PRN (21:55)
[2020-10-13] MEDS: vancomycin 125mg/5ml ORAL solution 5ml UD bottle PO SCH ×4 (03:32→21:47)
[2020-10-13] MEDS: mag hydrox/Alum hydrox/simeth 30ml oral suspension PO PRN (03:32)
[2020-10-13] MEDS: morphine 2 MG/ML inj. syringe IV PRN ×2 (04:26→12:03)
[2020-10-13 04:45] VITALS: BP 125/66
--- NOTE | 2020-10-13 06:57 | NUR ---
Problems reprioritized. Patient report given, questions answered & plan of care reviewed with Maryan DELGADO.
--- NOTE | 2020-10-13 06:58 | NUR ---
I agree with the DANNY Onofrepatient service technician pst, assesments, and report. Report given to DANNY Steinberg
[2020-10-13 07:32] LABS: BASOPHILS # (AUTO) 0.1 X10'3 (0-0.2); BASOPHILS % (AUTO) 0.2 % (0-1); EOSINOPHILS # (AUTO) 0.1 X10'3 (0-0.9); EOSINOPHILS % (AUTO) 0.6 % (0-6); HEMATOCRIT 31.8 % (42.0-52.0); HEMOGLOBIN 10.6 g/dl (14.0-17.9); LYMPHOCYTES # (AUTO) 0.7 X10'3 (1.1-4.8); LYMPHOCYTES % (AUTO) 2.7 % (21-51); MEAN CORPUSCULAR HEMOGLOBIN 31.7 PG (27.0-31.0); MEAN CORPUSCULAR HGB CONC 33.3 g/dL (33.0-36.5); MEAN PLATELET VOLUME 9.2 FL (7.4-10.4); MONOCYTES # (AUTO) 1.4 X10'3 (0-0.9); MONOCYTES % (AUTO) 5.9 % (2-12); NEUTROPHILS # (AUTO) 21.8 X10'3 (1.8-7.7); NEUTROPHILS % (AUTO) 90.6 % (42-75); PLATELET COUNT 554 X10'3 (140-440); RED BLOOD COUNT 3.34 X10'6 (4.70-6.10); RED CELL DISTRIBUTION WIDTH 16.1 % (11.5-14.5)
[2020-10-13 07:58] LABS: ALANINE AMINOTRANSFERASE 12 U/L (12-78); ALBUMIN 1.9 G/DL (3.4-5.0); ALBUMIN/GLOBULIN RATIO 0.5 (1.1-1.5); ALKALINE PHOSPHATASE 49 IU/L (46-116); ANION GAP 14 (8-16); ASPARTATE AMINO TRANSFERASE 17 U/L (10-37); BILIRUBIN,TOTAL 0.4 MG/DL (0.1-1.0); BLOOD UREA NITROGEN 25 MG/DL (7-18); CALCIUM 9.1 MG/DL (8.5-10.1); CHLORIDE 112 MMOL/L (99-107); CREATININE 1.79 MG/DL (0.60-1.10); GLUCOSE 106 MG/DL (70-104); MAGNESIUM 1.6 MG/DL (1.5-2.4); POTASSIUM 3.6 MMOL/L (3.5-5.1); SODIUM 146 MMOL/L (135-145); TOTAL CARBON DIOXIDE 20.2 MMOL/L (24-32); TOTAL PROTEIN 5.9 G/DL (6.4-8.2); eGFR 37 ML/MIN
[2020-10-13 08:00] VITALS: BP 151/77
[2020-10-13] MEDS ORDERED: vancomycin/NS 1 GM ADD-VANTAGE 250 ML X 1 DOSE IV SCH (08:00)
[2020-10-13] MEDS: K and/or MAG REPLACEMENT MC SCH ×2 (08:00→20:00)
[2020-10-13] MEDS: furosemide 40mg tablet PO SCH ×2 (08:00→21:47)
[2020-10-13] MEDS: multivitamins, therapeutics tablet PO SCH (08:00)
[2020-10-13] MEDS: folic acid 0.4mg tablet PO SCH (09:23)
[2020-10-13] MEDS: cholecalciferol (vitamin D3) 1,000 unit (25mcg) tablet PO SCH (09:23)
[2020-10-13] MEDS: allopurinol 100mg tablet PO SCH (09:24)
[2020-10-13] MEDS: aspirin 81mg tablet.DR PO SCH (09:24)
[2020-10-13] MEDS: lactobacillus rhamnosus 10,000 MMU CELLS/CAPSULE PO SCH ×2 (09:24→21:47)
[2020-10-13] MEDS: lisinopril 5mg tablet PO SCH (09:24)
[2020-10-13] MEDS: cyanocobalamin 500mcg tablet PO SCH (09:24)
[2020-10-13] MEDS: carVEDilol 12.5mg tablet PO SCH ×2 (09:25→21:47)
[2020-10-13] MEDS: heparin, porcine 5000 units/ml vial SQ SCH ×2 (09:26→21:47)
[2020-10-13] MEDS: piperacillin/tazo 3.375gm/50ml 50 ML IV SCH ×2 (09:26→16:24)
--- NOTE | 2020-10-13 09:53 | NUR ---
Pt. refusing to ambulate stating, "I'm so weak. I can't do it." Will requesting PT when hospitalist rounds.
[2020-10-13] MEDS: normal saline 1000ml 1,000 ML IV SCH (10:15)
--- NOTE | 2020-10-13 10:17 | NUR ---
PAGER ID: [phone] MESSAGE: Sunny Eid 348 This pt is refusing to ambulate for staff r/t "being too weak". NO bM since sx, hypo BS, no gas. May I order PT for today? Maryan 0774
[2020-10-13 11:30] VITALS: BP 152/80
--- NOTE | 2020-10-13 11:42 | NUR ---
Family member updated.
--- NOTE | 2020-10-13 11:42 | NUR ---
PT aware of pt's situation and refusals to walk r/t being weak. They may not have enough staff during the weekend to do an initial eval today, but stated they would try.
[2020-10-13] MEDS: ferrous sulfate 325mg tablet PO SCH ×2 (12:04→23:58)
[2020-10-13] MEDS ORDERED: CADD PCA waste documentation MC PRN (13:10)
[2020-10-13] MEDS ORDERED: naloxone 0.4 mg/ml inj IV PRN (13:10)
[2020-10-13] MEDS: potassium CL 20mEq in D5-1/2NS 1,000 ML IV SCH ×3 (13:32→22:55)
[2020-10-13] MEDS: HYDROmorph./NS 0.2 mg/ml CADD 100 ML IV SCH ×6 (13:33→23:00)
--- NOTE | 2020-10-13 18:31 | NUR ---
Problems reprioritized. Patient report given, questions answered & plan of care reviewed with Jose DELGADO and Christina HUDSONN.
--- NOTE | 2020-10-13 19:10 | NUR ---
Patient in room [facility] 348. I have received report from Maryan DELGADO and had the opportunity to ask questions and assume patient care.
--- NOTE | 2020-10-13 19:29 | NUR ---
I have received report from DANNY Steinberg and had the opportunity to ask questions and assume patient care.
[2020-10-13 20:00] VITALS: BP 142/89
[2020-10-14] MEDS: piperacillin/tazo 3.375gm/50ml 50 ML IV SCH ×3 (00:23→16:56)
[2020-10-14 00:27] VITALS: BP 155/79
--- NOTE | 2020-10-14 00:40 | NUR ---
Patient had a Pulse oximetry reading of 86 for his midnight vitals. Increased oxygen to 5L, raised head of bed, had patient use flutter valve, encouraged coughing, and suctioned secretions. Notified MD of situation and received an order for 100mg robitussin q6 prn Addendum: 10/14/20 at 0424 by Kingston Gallardo RN patient pulse oximetry increased to 94 with stated interventions, has remained consistently in mid 90s at 4 liters
[2020-10-14] MEDS: HYDROmorph./NS 0.2 mg/ml CADD 100 ML IV SCH ×12 (01:00→23:00)
[2020-10-14] MEDS: guaiFENesin 200 MG/10 ML oral syrup UD cup PO PRN (01:04)
[2020-10-14] MEDS: vancomycin 125mg/5ml ORAL solution 5ml UD bottle PO SCH ×4 (02:10→20:16)
--- NOTE | 2020-10-14 06:32 | NUR ---
I agree with DANNY Onofrecommunity organization director, assessments, and Report given to Sotero RN
--- NOTE | 2020-10-14 06:34 | NUR ---
Problems reprioritized. Patient report given, questions answered & plan of care reviewed with Sotero RN.
--- NOTE | 2020-10-14 06:40 | NUR ---
Patient in room [facility] 348. I have received report from Jose/Christina DELGADO and had the opportunity to ask questions and assume patient care.
[2020-10-14 07:02] LABS: BASOPHILS # (AUTO) 0.1 X10'3 (0-0.2); BASOPHILS % (AUTO) 0.3 % (0-1); EOSINOPHILS # (AUTO) 0.2 X10'3 (0-0.9); EOSINOPHILS % (AUTO) 0.6 % (0-6); HEMATOCRIT 31.6 % (42.0-52.0); HEMOGLOBIN 10.3 g/dl (14.0-17.9); LYMPHOCYTES # (AUTO) 0.6 X10'3 (1.1-4.8); LYMPHOCYTES % (AUTO) 1.8 % (21-51); MEAN CORPUSCULAR HEMOGLOBIN 31.3 PG (27.0-31.0); MEAN CORPUSCULAR HGB CONC 32.7 g/dL (33.0-36.5); MEAN CORPUSCULAR VOLUME 95.7 FL (78-98); MEAN PLATELET VOLUME 9.4 FL (7.4-10.4); MONOCYTES # (AUTO) 1.7 X10'3 (0-0.9); MONOCYTES % (AUTO) 5.1 % (2-12); NEUTROPHILS # (AUTO) 31.3 X10'3 (1.8-7.7); NEUTROPHILS % (AUTO) 92.2 % (42-75); PLATELET COUNT 532 X10'3 (140-440); RED CELL DISTRIBUTION WIDTH 16.3 % (11.5-14.5)
[2020-10-14 07:05] LABS: ALANINE AMINOTRANSFERASE 12 U/L (12-78); ALBUMIN 1.9 G/DL (3.4-5.0); ALBUMIN/GLOBULIN RATIO 0.4 (1.1-1.5); ALKALINE PHOSPHATASE 67 IU/L (46-116); ANION GAP 10 (8-16); ASPARTATE AMINO TRANSFERASE 15 U/L (10-37); BILIRUBIN,TOTAL 0.4 MG/DL (0.1-1.0); BLOOD UREA NITROGEN 25 MG/DL (7-18); BUN/CREATININE RATIO 13.3 (5.4-32.0); CALCIUM 9.2 MG/DL (8.5-10.1); CHLORIDE 111 MMOL/L (99-107); CREATININE 1.88 MG/DL (0.60-1.10); GLUCOSE 132 MG/DL (70-104); POTASSIUM 3.5 MMOL/L (3.5-5.1); SODIUM 143 MMOL/L (135-145); TOTAL CARBON DIOXIDE 21.9 MMOL/L (24-32); TOTAL PROTEIN 6.3 G/DL (6.4-8.2); eGFR 35 ML/MIN
--- NOTE | 2020-10-14 07:41 | NUR ---
PAGER ID: [phone] MESSAGE: [facility] 348a Bryson Eid patient had a WBC this morning of 34k
[2020-10-14 07:45] LABS: ANISOCYTOSIS 1+; PLATELET ESTIMATE INCREASED; TOTAL CELLS COUNTED 100
[2020-10-14 07:47] LABS: SCHISTOCYTES 1+; TOXIC GRANULATION 1+; TOXIC VACUOLATION FEW
[2020-10-14 07:48] LABS: TARGET CELLS FEW
[2020-10-14 08:00] VITALS: BP 149/82
[2020-10-14] MEDS: K and/or MAG REPLACEMENT MC SCH ×2 (08:00→20:00)
[2020-10-14] MEDS: potassium CL 20mEq in D5-1/2NS 1,000 ML IV SCH (09:23)
[2020-10-14] MEDS: cholecalciferol (vitamin D3) 1,000 unit (25mcg) tablet PO SCH (09:24)
[2020-10-14] MEDS: allopurinol 100mg tablet PO SCH (09:24)
[2020-10-14] MEDS: aspirin 81mg tablet.DR PO SCH (09:24)
[2020-10-14] MEDS: multivitamins, therapeutics tablet PO SCH (09:25)
[2020-10-14] MEDS: ferrous sulfate 325mg tablet PO SCH (09:25)
[2020-10-14] MEDS: folic acid 0.4mg tablet PO SCH (09:25)
[2020-10-14] MEDS: furosemide 40mg tablet PO SCH ×2 (09:25→20:16)
[2020-10-14] MEDS: lactobacillus rhamnosus 10,000 MMU CELLS/CAPSULE PO SCH ×2 (09:25→20:16)
[2020-10-14] MEDS: cyanocobalamin 500mcg tablet PO SCH (09:26)
[2020-10-14] MEDS: carVEDilol 12.5mg tablet PO SCH ×2 (09:26→20:16)
[2020-10-14] MEDS: heparin, porcine 5000 units/ml vial SQ SCH ×2 (09:27→20:17)
[2020-10-14] MEDS: lisinopril 5mg tablet PO SCH (09:27)
--- NOTE | 2020-10-14 09:58 | NUR ---
Initial: Pt admit for LLQ abdominal abscess and diarrhea, positive for C.diff. Pt s/p sigmoid resection with drainage of abdominal wall abscess 10/11. No BM post-op, with ileus per MD note. Currently with PRN bowel care available. Per physical assessment pt with RUQ/LUQ normal bowel sounds however RLQ/LLQ hypoactive bowel sounds. Pt would benefit from bowel care to assist with bowel regularity. Diet has fluctuated, initially on a heart healthy diet then NPO, then clear and full liquids, currently NPO. PO intake slightly fluctuates however averages 75-100% PO intake. No nutrition intervention implemented at this time d/t NPO status. Will continue to follow closely. Recommendations: 1) Advance to low fiber/low residue diet as medically indicated 2) Monitor need for ONS/additional protein with diet advancement 3) Routine bowel care 4) Weekly scaled weights Addendum: 10/14/20 at [address] Amended: Links added.
[2020-10-14 12:00] VITALS: BP 142/77
--- NOTE | 2020-10-14 18:08 | NUR ---
Problems reprioritized. Patient report given, questions answered & plan of care reviewed with Albaro DELGADO.
[2020-10-14 18:45] VITALS: BP 153/78
[2020-10-15] VITALS: BP 142/69
[2020-10-15] MEDS: piperacillin/tazo 3.375gm/50ml 50 ML IV SCH ×2 (00:14→07:50)
[2020-10-15] MEDS: ferrous sulfate 325mg tablet PO SCH ×3 (00:14→22:56)
[2020-10-15] MEDS: HYDROmorph./NS 0.2 mg/ml CADD 100 ML IV SCH ×12 (01:00→23:00)
[2020-10-15] MEDS: vancomycin 125mg/5ml ORAL solution 5ml UD bottle PO SCH ×4 (02:00→20:00)
--- NOTE | 2020-10-15 06:23 | NUR ---
Problems reprioritized. Patient report given, questions answered & plan of care reviewed with TOBI. Addendum: 10/15/20 at 0623 by Jay Montemayor RN Amended: Links added.
[2020-10-15 07:30] VITALS: BP 154/64
[2020-10-15] MEDS: carVEDilol 12.5mg tablet PO SCH ×2 (07:51→21:06)
[2020-10-15] MEDS: cholecalciferol (vitamin D3) 1,000 unit (25mcg) tablet PO SCH (07:51)
[2020-10-15] MEDS: allopurinol 100mg tablet PO SCH (07:51)
[2020-10-15] MEDS: multivitamins, therapeutics tablet PO SCH (07:51)
[2020-10-15] MEDS: cyanocobalamin 500mcg tablet PO SCH (07:51)
[2020-10-15] MEDS: folic acid 0.4mg tablet PO SCH (07:51)
[2020-10-15] MEDS: lactobacillus rhamnosus 10,000 MMU CELLS/CAPSULE PO SCH ×2 (07:51→21:06)
[2020-10-15] MEDS: furosemide 40mg tablet PO SCH ×2 (07:51→21:06)
[2020-10-15] MEDS: aspirin 81mg tablet.DR PO SCH (07:51)
[2020-10-15] MEDS: lisinopril 5mg tablet PO SCH (07:52)
[2020-10-15] MEDS: heparin, porcine 5000 units/ml vial SQ SCH ×2 (07:57→21:06)
[2020-10-15] MEDS: K and/or MAG REPLACEMENT MC SCH ×2 (08:00→20:57)
--- NOTE | 2020-10-15 09:22 | NUR ---
Paged Dr. Grover PAGER ID: [phone] MESSAGE: Surgical Lilian RN ext [phone]. RE: Kahlil Eid. Patient has been having congestion of phlegm, coughing, with a little crackles. O2 sat this am was 89-90% on room air., gave him 2lpm/NC then now its 4lpm/NC with 94-95% O2 sat. Chest Xray?
[2020-10-15 11:00] VITALS: BP 141/61
[2020-10-15] MEDS: metroNIDAZOLE-Flagyl 500mg/NS 100 ML IV SCH ×3 (11:00→23:36)
--- NOTE | 2020-10-15 11:04 | NUR ---
I called pharmacy to request delivery of Rocephin 2gm IV paolo.
[2020-10-15] MEDS: guaiFENesin 200 MG/10 ML oral syrup UD cup PO PRN (12:40)
[2020-10-15] MEDS: CefTRIAXone 2gm/D5W 50ml BAG 50 ML IV SCH (13:02)
--- NOTE | 2020-10-15 13:27 | NUR ---
nanotechnology engineering technologist paged to request vascular ultrasound of bilateral legs per MD order
[2020-10-15 13:56] LABS: BASOPHILS # (AUTO) 0.2 X10'3 (0-0.2); BASOPHILS % (AUTO) 0.6 % (0-1); EOSINOPHILS # (AUTO) 0.7 X10'3 (0-0.9); EOSINOPHILS % (AUTO) 1.8 % (0-6); HEMATOCRIT 30.5 % (42.0-52.0); HEMOGLOBIN 9.7 g/dl (14.0-17.9); LYMPHOCYTES # (AUTO) 0.6 X10'3 (1.1-4.8); LYMPHOCYTES % (AUTO) 1.6 % (21-51); MEAN CORPUSCULAR HEMOGLOBIN 30.7 PG (27.0-31.0); MEAN CORPUSCULAR HGB CONC 31.9 g/dL (33.0-36.5); MEAN CORPUSCULAR VOLUME 96.1 FL (78-98); MONOCYTES # (AUTO) 2.1 X10'3 (0-0.9); MONOCYTES % (AUTO) 5.7 % (2-12); NEUTROPHILS # (AUTO) 33.7 X10'3 (1.8-7.7); NEUTROPHILS % (AUTO) 90.3 % (42-75); PLATELET COUNT 477 X10'3 (140-440); RED BLOOD COUNT 3.17 X10'6 (4.70-6.10); RED CELL DISTRIBUTION WIDTH 15.9 % (11.5-14.5)
[2020-10-15 14:00] LABS: WHITE BLOOD COUNT 37.3 X10'3 (4.5-11.0)
[2020-10-15 14:07] LABS: ALANINE AMINOTRANSFERASE 12 U/L (12-78); ALBUMIN 1.8 G/DL (3.4-5.0); ALBUMIN/GLOBULIN RATIO 0.4 (1.1-1.5); ALKALINE PHOSPHATASE 68 IU/L (46-116); ANION GAP 11 (8-16); ASPARTATE AMINO TRANSFERASE 20 U/L (10-37); BILIRUBIN,TOTAL 0.3 MG/DL (0.1-1.0); BLOOD UREA NITROGEN 24 MG/DL (7-18); CALCIUM 9.4 MG/DL (8.5-10.1); CHLORIDE 110 MMOL/L (99-107); CREATININE 1.84 MG/DL (0.60-1.10); GLUCOSE 97 MG/DL (70-104); POTASSIUM 3.3 MMOL/L (3.5-5.1); SODIUM 143 MMOL/L (135-145); TOTAL CARBON DIOXIDE 22.5 MMOL/L (24-32); TOTAL PROTEIN 6.1 G/DL (6.4-8.2); eGFR 36 ML/MIN
[2020-10-15 14:25] LABS: PLATELET ESTIMATE INCREASED; TOTAL CELLS COUNTED 100
[2020-10-15 14:26] LABS: TARGET CELLS FEW
[2020-10-15 14:27] LABS: HYPOGRANULAR PLATELETS FEW; SCHISTOCYTES 1+
--- NOTE | 2020-10-15 15:27 | NUR ---
Paged Dr. Grover PAGER ID: [phone] MESSAGE: Surgical Lilian RN ext [phone]. RE: Sunny Eid. D-dimer is elevated 11.30, WBC today went up to 37.3 from 34. K 3.3 no K replacement order yet.
--- NOTE | 2020-10-15 15:39 | NUR ---
PAGER ID: [phone] MESSAGE: Surgical Lilian DELGADO ext [phone]. RE: Sunny Eid. CT scan dept said its up to you if you want CTA chest done . Problem is his IV needs to be gauge 20, its gauge 22 so its smaller. They said they can also do VQ scan if you okay with it.
[2020-10-15] MEDS ORDERED: iohexol 350MG/ML 100ml bottle IV ONE (16:27)
--- NOTE | 2020-10-15 16:41 | NUR ---
Patient got a new peripheral IV gauge 20 on his right upper arm after [address] scan department notified about presence of new IV g20 and that patient has been NPO and will need portable O2 upon transport.
--- NOTE | 2020-10-15 18:24 | NUR ---
Problems reprioritized. Patient report given, questions answered & plan of care reviewed with Albaro DELGADO.
[2020-10-15 18:25] VITALS: BP 151/75
[2020-10-15] MEDS: diatr meglu/diatrizoate 30ml oral sol.-(3 dose) bottle PO SCH (21:06)
[2020-10-16] VITALS: BP 146/77
[2020-10-16] MEDS: HYDROmorph./NS 0.2 mg/ml CADD 100 ML IV SCH ×12 (01:00→23:00)
[2020-10-16] MEDS: vancomycin 125mg/5ml ORAL solution 5ml UD bottle PO SCH ×4 (01:56→20:53)
--- NOTE | 2020-10-16 06:07 | NUR ---
Patient in room [facility] 348. I have received report from Albaro DELGADO and had the opportunity to ask questions and assume patient care.
--- NOTE | 2020-10-16 06:29 | NUR ---
Problems reprioritized. Patient report given, questions answered & plan of care reviewed with TOBI. Addendum: 10/16/20 at 0630 by Jay Montemayor RN Amended: Links added.
[2020-10-16 07:00] VITALS: BP 141/108
[2020-10-16] MEDS: diatr meglu/diatrizoate 30ml oral sol.-(3 dose) bottle PO SCH ×2 (07:14→10:08)
[2020-10-16] MEDS: metroNIDAZOLE-Flagyl 500mg/NS 100 ML IV SCH ×2 (07:15→17:18)
[2020-10-16] MEDS: cyanocobalamin 500mcg tablet PO SCH (07:15)
[2020-10-16] MEDS: furosemide 40mg tablet PO SCH ×2 (07:17→20:53)
[2020-10-16] MEDS: aspirin 81mg tablet.DR PO SCH (07:17)
[2020-10-16] MEDS: multivitamins, therapeutics tablet PO SCH (07:17)
[2020-10-16] MEDS: folic acid 0.4mg tablet PO SCH (07:17)
[2020-10-16] MEDS: cholecalciferol (vitamin D3) 1,000 unit (25mcg) tablet PO SCH (07:17)
[2020-10-16] MEDS: carVEDilol 12.5mg tablet PO SCH ×2 (07:17→20:53)
[2020-10-16] MEDS: allopurinol 100mg tablet PO SCH (07:17)
[2020-10-16] MEDS: lactobacillus rhamnosus 10,000 MMU CELLS/CAPSULE PO SCH ×2 (07:17→20:53)
[2020-10-16] MEDS: lisinopril 5mg tablet PO SCH (07:17)
[2020-10-16] MEDS: heparin, porcine 5000 units/ml vial SQ SCH ×2 (07:18→20:54)
[2020-10-16] MEDS ORDERED: VANCOMYCIN LEVEL IV ONE (07:30)
[2020-10-16] MEDS: K and/or MAG REPLACEMENT MC SCH ×2 (08:00→20:00)
[2020-10-16] MEDS: CefTRIAXone 2gm/D5W 50ml BAG 50 ML IV SCH (08:28)
[2020-10-16 08:37] LABS: BASOPHILS # (AUTO) 0.1 X10'3 (0-0.2); BASOPHILS % (AUTO) 0.4 % (0-1); EOSINOPHILS % (AUTO) 3.2 % (0-6); LYMPHOCYTES # (AUTO) 0.8 X10'3 (1.1-4.8); LYMPHOCYTES % (AUTO) 2.6 % (21-51); MEAN CORPUSCULAR HEMOGLOBIN 31.1 PG (27.0-31.0); MEAN CORPUSCULAR HGB CONC 32.3 g/dL (33.0-36.5); MEAN CORPUSCULAR VOLUME 96.3 FL (78-98); MEAN PLATELET VOLUME 9.1 FL (7.4-10.4); MONOCYTES # (AUTO) 2.1 X10'3 (0-0.9); MONOCYTES % (AUTO) 6.8 % (2-12); NEUTROPHILS # (AUTO) 26.2 X10'3 (1.8-7.7); PLATELET COUNT 486 X10'3 (140-440); RED BLOOD COUNT 2.91 X10'6 (4.70-6.10); RED CELL DISTRIBUTION WIDTH 16.1 % (11.5-14.5)
[2020-10-16 08:41] LABS: WHITE BLOOD COUNT 30.1 X10'3 (4.5-11.0)
[2020-10-16 08:46] LABS: ALBUMIN 1.6 G/DL (3.4-5.0); ANION GAP 10 (8-16); BLOOD UREA NITROGEN 23 MG/DL (7-18); BUN/CREATININE RATIO 12.8 (5.4-32.0); CALCIUM 9.1 MG/DL (8.5-10.1); CHLORIDE 111 MMOL/L (99-107); GLUCOSE 104 MG/DL (70-104); MAGNESIUM 1.8 MG/DL (1.5-2.4); SODIUM 143 MMOL/L (135-145); TOTAL CARBON DIOXIDE 22.4 MMOL/L (24-32); VANCOMYCIN,TROUGH 11.6 UG/ML (6.0-14.0); eGFR 37 ML/MIN
--- NOTE | 2020-10-16 08:47 | NUR ---
Paged Dr. Grover PAGER ID: [phone] MESSAGE: Surgical Lilian RN ext [phone]. RE: Kahlil Eid. Reporting critical lab toady WBC 30.1 (37.3 yesterday).
--- NOTE | 2020-10-16 08:56 | NUR ---
Paged Nya Johnson PAGER ID: [phone] MESSAGE: Surgical Lilian RN ext [phone]. RE: Kahlil Eid. Reporting critical lab K 3.0 from 3.3 yesterday. Can I get K replacement order?
[2020-10-16 09:10] LABS: TOTAL CELLS COUNTED 100
[2020-10-16 09:23] LABS: ANISOCYTOSIS 1+; PLATELET ESTIMATE INCREASED
[2020-10-16 09:24] LABS: SCHISTOCYTES FEW
[2020-10-16 09:27] LABS: HYPOCHROMASIA 1+; HYPOGRANULAR PLATELETS FEW; LARGE PLATELETS FEW
[2020-10-16] MEDS ORDERED: POTASSIUM BICARB 20meq eff tab 20 MEQ TABLET.EFF PO ONE (09:50)
[2020-10-16] MEDS: ferrous sulfate 325mg tablet PO SCH ×2 (10:08→23:00)
--- NOTE | 2020-10-16 10:35 | NUR ---
Patient just left the room, going to CT scan
[2020-10-16 11:00] VITALS: BP 166/80
--- NOTE | 2020-10-16 12:31 | NUR ---
Paged Dr. Grover PAGER ID: [phone] MESSAGE: MESSAGE: Surgical Lilian DELGADO ext [phone]. RE: Kahlil Eid. Left arm Xray- An acute versus subacute comminuted and displaced fracture proximal left humerus. may be due to changes of healing vs malignancy/metastasis.
--- NOTE | 2020-10-16 12:36 | NUR ---
Paged PT requesting to work with patient
--- NOTE | 2020-10-16 13:36 | NUR ---
Paged Dr. Grover PAGER ID: [phone] MESSAGE: Surgical Lilian DELGADO ext [phone]. RE: Kahlil Eid. Humerus Xray left - acute vs subacute commuted & displaced fracture. Are we going to have orthopedic consult?
[2020-10-16] MEDS: potassium CL 20mEq in D5-1/2NS 1,000 ML IV SCH (14:05)
--- NOTE | 2020-10-16 17:26 | NUR ---
Patient voided already since the staples catheter was removed. Voided 100 ml of yellow urine.
--- NOTE | 2020-10-16 17:32 | NUR ---
Late entry: Randolph, speech therapist seen patient this am for evaluation. During that time, patient was on clear liquid diet. Per Randolph, patient passed the swallow test. He did not mentioned anything about pureed diet. He said he did tested patient with liquids only. I have mentioned to Randolph that patient took his scheduled morning meds this am without no problem.
--- NOTE | 2020-10-16 18:00 | NUR ---
Right and left KEO drains removed as per Dr. Blair order, tolerated the procedure. Puncture wound covered with optifoam.
--- NOTE | 2020-10-16 18:21 | NUR ---
Problems reprioritized. Patient report given, questions answered & plan of care reviewed with Albaro DELGADO.
[2020-10-16 18:40] VITALS: BP 138/86
[2020-10-17] MEDS: metroNIDAZOLE-Flagyl 500mg/NS 100 ML IV SCH ×4 (00:37→23:49)
[2020-10-17] MEDS: HYDROmorph./NS 0.2 mg/ml CADD 100 ML IV SCH ×12 (01:00→23:00)
[2020-10-17] MEDS: vancomycin 125mg/5ml ORAL solution 5ml UD bottle PO SCH ×4 (02:00→21:14)
[2020-10-17 06:31] LABS: BASOPHILS # (AUTO) 0.1 X10'3 (0-0.2); BASOPHILS % (AUTO) 0.3 % (0-1); EOSINOPHILS # (AUTO) 0.9 X10'3 (0-0.9); EOSINOPHILS % (AUTO) 3.5 % (0-6); HEMATOCRIT 27.5 % (42.0-52.0); HEMOGLOBIN 8.9 g/dl (14.0-17.9); LYMPHOCYTES % (AUTO) 4.2 % (21-51); MEAN CORPUSCULAR HEMOGLOBIN 31.4 PG (27.0-31.0); MEAN CORPUSCULAR HGB CONC 32.5 g/dL (33.0-36.5); MEAN CORPUSCULAR VOLUME 96.6 FL (78-98); MEAN PLATELET VOLUME 9.4 FL (7.4-10.4); MONOCYTES # (AUTO) 1.6 X10'3 (0-0.9); MONOCYTES % (AUTO) 6.6 % (2-12); NEUTROPHILS # (AUTO) 21.1 X10'3 (1.8-7.7); NEUTROPHILS % (AUTO) 85.4 % (42-75); PLATELET COUNT 486 X10'3 (140-440); RED BLOOD COUNT 2.84 X10'6 (4.70-6.10); RED CELL DISTRIBUTION WIDTH 16.1 % (11.5-14.5); WHITE BLOOD COUNT 24.7 X10'3 (4.5-11.0)
[2020-10-17 06:41] LABS: ALBUMIN 1.6 G/DL (3.4-5.0); ANION GAP 11 (8-16); BLOOD UREA NITROGEN 21 MG/DL (7-18); BUN/CREATININE RATIO 13.3 (5.4-32.0); CALCIUM 9.4 MG/DL (8.5-10.1); CHLORIDE 113 MMOL/L (99-107); CREATININE 1.58 MG/DL (0.60-1.10); GLUCOSE 99 MG/DL (70-104); SODIUM 144 MMOL/L (135-145); TOTAL CARBON DIOXIDE 20.3 MMOL/L (24-32); eGFR 43 ML/MIN
[2020-10-17 06:53] LABS: POTASSIUM 2.9 MMOL/L (3.5-5.1)
--- NOTE | 2020-10-17 06:57 | NUR ---
Patient in room [facility] 348. I have received report from Albaro DELGADO and had the opportunity to ask questions and assume patient care.
[2020-10-17] MEDS ORDERED: POTASSIUM BICARB 20meq eff tab 20 MEQ TABLET.EFF PO STA (07:30)
[2020-10-17] MEDS: CefTRIAXone 2gm/D5W 50ml BAG 50 ML IV SCH (07:48)
[2020-10-17] MEDS: folic acid 0.4mg tablet PO SCH (07:49)
[2020-10-17] MEDS: cyanocobalamin 500mcg tablet PO SCH (07:49)
[2020-10-17] MEDS: multivitamins, therapeutics tablet PO SCH (07:49)
[2020-10-17] MEDS: lactobacillus rhamnosus 10,000 MMU CELLS/CAPSULE PO SCH ×2 (07:50→21:14)
[2020-10-17] MEDS: aspirin 81mg tablet.DR PO SCH (07:50)
[2020-10-17] MEDS: allopurinol 100mg tablet PO SCH (07:50)
[2020-10-17] MEDS: cholecalciferol (vitamin D3) 1,000 unit (25mcg) tablet PO SCH (07:50)
[2020-10-17] MEDS: carVEDilol 12.5mg tablet PO SCH ×2 (07:50→21:14)
[2020-10-17] MEDS: furosemide 40mg tablet PO SCH ×2 (07:50→21:14)
[2020-10-17] MEDS: lisinopril 5mg tablet PO SCH (07:51)
[2020-10-17] MEDS: heparin, porcine 5000 units/ml vial SQ SCH ×2 (07:52→21:15)
[2020-10-17 08:00] VITALS: BP 156/78
[2020-10-17] MEDS: K and/or MAG REPLACEMENT MC SCH ×2 (08:00→20:00)
[2020-10-17 11:00] VITALS: BP 119/73
[2020-10-17] MEDS: ferrous sulfate 325mg tablet PO SCH ×2 (11:32→23:49)
--- NOTE | 2020-10-17 13:19 | NUR ---
Reassessment: Patient previously NPO, diet just advanced at dinner 10/16 to regular. Pt documented with 25% PO intake first meal since diet advancement, pending documentation of PO intake for today. PO intake anticipated to increase as pt with average 75-100% PO intake prior to NPO status. LBM 10/16 documented as large. Will continue to follow closely and monitor need for nutrition intervention pending further trends in PO intake. Recommendations: 1) Change to low fiber/low residue diet as medically indicated in view of recent GI surgery 2) Monitor need for ONS/additional protein pending trends in PO intake 3) Routine bowel care 4) Weekly scaled weights Addendum: 10/17/20 at [address] Amended: Links added.
--- NOTE | 2020-10-17 16:36 | NUR ---
PAGER ID: [phone] MESSAGE: Shaniqua Dany #[phone]- Pt unable to go home, her 's car broke and they do not live near by. Pt's dr sending documents for Melani to help with home TPN arrangement. Thank you . Vinita Pinto [phone]
[2020-10-17] MEDS: POTASSIUM BICARB 20meq eff tab 20 MEQ TABLET.EFF PO PRN ×2 (17:19→21:16)
[2020-10-17 18:00] VITALS: BP 136/70
--- NOTE | 2020-10-17 18:09 | NUR ---
Problems reprioritized. Patient report given, questions answered & plan of care reviewed with Luna DELGADO.
--- NOTE | 2020-10-17 18:40 | NUR ---
Patient in room [facility] 348. I have received report from Vinita DELGADO and had the opportunity to ask questions and assume patient care.
[2020-10-18 00:22] VITALS: BP 133/66
[2020-10-18] MEDS: HYDROmorph./NS 0.2 mg/ml CADD 100 ML IV SCH ×11 (01:00→21:00)
[2020-10-18] MEDS: vancomycin 125mg/5ml ORAL solution 5ml UD bottle PO SCH ×4 (02:33→21:02)
[2020-10-18 03:00] LABS: BASOPHILS # (AUTO) 0.1 X10'3 (0-0.2); BASOPHILS % (AUTO) 0.4 % (0-1); EOSINOPHILS # (AUTO) 0.8 X10'3 (0-0.9); EOSINOPHILS % (AUTO) 4.3 % (0-6); HEMATOCRIT 26.1 % (42.0-52.0); HEMOGLOBIN 8.7 g/dl (14.0-17.9); LYMPHOCYTES # (AUTO) 1.1 X10'3 (1.1-4.8); LYMPHOCYTES % (AUTO) 5.4 % (21-51); MEAN CORPUSCULAR HEMOGLOBIN 31.7 PG (27.0-31.0); MEAN CORPUSCULAR HGB CONC 33.2 g/dL (33.0-36.5); MEAN CORPUSCULAR VOLUME 95.6 FL (78-98); MEAN PLATELET VOLUME 9.5 FL (7.4-10.4); MONOCYTES # (AUTO) 1.6 X10'3 (0-0.9); MONOCYTES % (AUTO) 8.1 % (2-12); NEUTROPHILS % (AUTO) 81.8 % (42-75); PLATELET COUNT 479 X10'3 (140-440); RED BLOOD COUNT 2.73 X10'6 (4.70-6.10); RED CELL DISTRIBUTION WIDTH 15.7 % (11.5-14.5); WHITE BLOOD COUNT 19.6 X10'3 (4.5-11.0)
[2020-10-18 03:08] LABS: ALBUMIN 1.6 G/DL (3.4-5.0); ANION GAP 7 (8-16); BLOOD UREA NITROGEN 22 MG/DL (7-18); BUN/CREATININE RATIO 14.6 (5.4-32.0); CALCIUM 9.3 MG/DL (8.5-10.1); CHLORIDE 110 MMOL/L (99-107); CREATININE 1.51 MG/DL (0.60-1.10); GLUCOSE 108 MG/DL (70-104); POTASSIUM 3.7 MMOL/L (3.5-5.1); SODIUM 142 MMOL/L (135-145); eGFR 45 ML/MIN
--- NOTE | 2020-10-18 06:37 | NUR ---
I have reviewed and agree with all interventions, assessments performed and documented by DANNY Onofre.
--- NOTE | 2020-10-18 06:45 | NUR ---
Patient in room [facility] 348. I have received report from Zeinab DELGADO and had the opportunity to ask questions and assume patient care.
--- NOTE | 2020-10-18 06:52 | NUR ---
Problems reprioritized. Patient report given, questions answered & plan of care reviewed with Vinita DELGADO.
[2020-10-18 07:00] VITALS: BP 142/67
[2020-10-18] MEDS: K and/or MAG REPLACEMENT MC SCH ×2 (08:00→20:00)
[2020-10-18] MEDS: heparin, porcine 5000 units/ml vial SQ SCH ×2 (08:00→21:02)
[2020-10-18] MEDS: allopurinol 100mg tablet PO SCH (08:53)
[2020-10-18] MEDS: cholecalciferol (vitamin D3) 1,000 unit (25mcg) tablet PO SCH (08:53)
[2020-10-18] MEDS: folic acid 0.4mg tablet PO SCH (08:53)
[2020-10-18] MEDS: lactobacillus rhamnosus 10,000 MMU CELLS/CAPSULE PO SCH ×2 (08:53→21:02)
[2020-10-18] MEDS: furosemide 40mg tablet PO SCH ×2 (08:54→21:02)
[2020-10-18] MEDS: aspirin 81mg tablet.DR PO SCH (08:54)
[2020-10-18] MEDS: multivitamins, therapeutics tablet PO SCH (08:54)
[2020-10-18] MEDS: carVEDilol 12.5mg tablet PO SCH ×2 (08:54→21:01)
[2020-10-18] MEDS: cyanocobalamin 500mcg tablet PO SCH (08:54)
[2020-10-18] MEDS: lisinopril 5mg tablet PO SCH (08:55)
[2020-10-18] MEDS: CefTRIAXone 2gm/D5W 50ml BAG 50 ML IV SCH (08:56)
[2020-10-18] MEDS: metroNIDAZOLE-Flagyl 500mg/NS 100 ML IV SCH ×2 (08:56→18:52)
[2020-10-18 11:00] VITALS: BP 116/65
[2020-10-18] MEDS: potassium CL 20mEq in D5-1/2NS 1,000 ML IV SCH (11:19)
[2020-10-18] MEDS: ferrous sulfate 325mg tablet PO SCH (12:03)
[2020-10-18 18:00] VITALS: BP 164/78
--- NOTE | 2020-10-18 18:00 | NUR ---
Problems reprioritized. Patient report given, questions answered & plan of care reviewed with Preeti DELGADO.
--- NOTE | 2020-10-18 18:10 | NUR ---
Patient in room [facility] 348. I have received report from DANNY Talamantes and had the opportunity to ask questions and assume patient care.
--- NOTE | 2020-10-18 18:36 | NUR ---
Patient in room [facility] 348. I have received report from DANNY Talamantes and had the opportunity to ask questions and assume patient care. Addendum: 10/18/20 at 2350 by Breanne Schwartz RN Per DANNY Talamantes fluids D/C by Addendum: 10/19/20 at 0117 by Breanne Schwartz RN Nemesio Talamantes RN D/C KLEVER pump by
[2020-10-19] VITALS: BP 143/73
[2020-10-19] MEDS: ferrous sulfate 325mg tablet PO SCH ×3 (00:21→21:51)
[2020-10-19] MEDS: metroNIDAZOLE-Flagyl 500mg/NS 100 ML IV SCH ×3 (00:21→16:05)
[2020-10-19] MEDS: vancomycin 125mg/5ml ORAL solution 5ml UD bottle PO SCH ×4 (02:14→21:47)
--- NOTE | 2020-10-19 06:22 | NUR ---
Problems reprioritized. Patient report given, questions answered & plan of care reviewed with DANNY Bey.
[2020-10-19 06:35] LABS: BASOPHILS # (AUTO) 0.1 X10'3 (0-0.2); BASOPHILS % (AUTO) 0.8 % (0-1); EOSINOPHILS # (AUTO) 0.8 X10'3 (0-0.9); EOSINOPHILS % (AUTO) 4.4 % (0-6); HEMATOCRIT 26.9 % (42.0-52.0); HEMOGLOBIN 8.9 g/dl (14.0-17.9); LYMPHOCYTES # (AUTO) 1.1 X10'3 (1.1-4.8); LYMPHOCYTES % (AUTO) 6.6 % (21-51); MEAN CORPUSCULAR HEMOGLOBIN 31.6 PG (27.0-31.0); MEAN CORPUSCULAR VOLUME 95.7 FL (78-98); MEAN PLATELET VOLUME 9.7 FL (7.4-10.4); MONOCYTES # (AUTO) 1.4 X10'3 (0-0.9); MONOCYTES % (AUTO) 8.2 % (2-12); NEUTROPHILS # (AUTO) 13.8 X10'3 (1.8-7.7); PLATELET COUNT 488 X10'3 (140-440); RED BLOOD COUNT 2.82 X10'6 (4.70-6.10); WHITE BLOOD COUNT 17.2 X10'3 (4.5-11.0)
[2020-10-19 06:37] LABS: ALBUMIN 1.7 G/DL (3.4-5.0); ANION GAP 7 (8-16); BLOOD UREA NITROGEN 21 MG/DL (7-18); BUN/CREATININE RATIO 13.8 (5.4-32.0); CALCIUM 9.5 MG/DL (8.5-10.1); CHLORIDE 108 MMOL/L (99-107); CREATININE 1.52 MG/DL (0.60-1.10); GLUCOSE 110 MG/DL (70-104); POTASSIUM 3.3 MMOL/L (3.5-5.1); SODIUM 140 MMOL/L (135-145); TOTAL CARBON DIOXIDE 24.6 MMOL/L (24-32); eGFR 45 ML/MIN
--- NOTE | 2020-10-19 06:40 | NUR ---
Patient in room [facility] 348. I have received report from LEI DELGADO and had the opportunity to ask questions and assume patient care.
[2020-10-19 07:20] VITALS: BP 151/68
[2020-10-19] MEDS: K and/or MAG REPLACEMENT MC SCH ×3 (08:00→20:00)
[2020-10-19] MEDS: furosemide 40mg tablet PO SCH ×2 (10:21→21:46)
[2020-10-19] MEDS: aspirin 81mg tablet.DR PO SCH (10:21)
[2020-10-19] MEDS: cyanocobalamin 500mcg tablet PO SCH (10:21)
[2020-10-19] MEDS: lactobacillus rhamnosus 10,000 MMU CELLS/CAPSULE PO SCH ×2 (10:21→21:45)
[2020-10-19] MEDS: folic acid 0.4mg tablet PO SCH (10:22)
[2020-10-19] MEDS: allopurinol 100mg tablet PO SCH (10:22)
[2020-10-19] MEDS: cholecalciferol (vitamin D3) 1,000 unit (25mcg) tablet PO SCH (10:23)
[2020-10-19] MEDS: multivitamins, therapeutics tablet PO SCH (10:23)
[2020-10-19] MEDS: lisinopril 5mg tablet PO SCH (10:23)
[2020-10-19] MEDS: carVEDilol 12.5mg tablet PO SCH ×2 (10:23→21:46)
[2020-10-19] MEDS: heparin, porcine 5000 units/ml vial SQ SCH ×2 (10:24→21:48)
[2020-10-19] MEDS: CefTRIAXone 2gm/D5W 50ml BAG 50 ML IV SCH (10:24)
[2020-10-19 11:00] VITALS: BP 130/46
[2020-10-19] MEDS ORDERED: potassium Cl 40MEQ/1/2NS 520ml 520 ML IV PRN (14:35)
[2020-10-19] MEDS ORDERED: magnesium Cl slow-release 64mg tablet PO PRN (14:35)
[2020-10-19] MEDS ORDERED: magnesium 4gm in 100ml NS 100 ML IV PRN (14:35)
[2020-10-19] MEDS ORDERED: potassium Cl 20 mEq SR tablet PO PRN (14:35)
[2020-10-19] MEDS: potassium Cl 20 mEq SR tablet PO PRN (14:51)
[2020-10-19 18:00] VITALS: BP 150/70
--- NOTE | 2020-10-19 18:26 | NUR ---
Problems reprioritized. Patient report given, questions answered & plan of care reviewed with Jose DELGADO.
--- NOTE | 2020-10-19 18:31 | NUR ---
Patient in room [facility] 348. I have received report from DANNY Bey and had the opportunity to ask questions and assume patient care.
[2020-10-20] MEDS: metroNIDAZOLE-Flagyl 500mg/NS 100 ML IV SCH ×4 (00:51→23:31)
[2020-10-20] MEDS: vancomycin 125mg/5ml ORAL solution 5ml UD bottle PO SCH ×4 (03:20→20:46)
[2020-10-20 06:28] LABS: ALBUMIN 1.9 G/DL (3.4-5.0); ANION GAP 7 (8-16); BLOOD UREA NITROGEN 21 MG/DL (7-18); BUN/CREATININE RATIO 13.8 (5.4-32.0); CALCIUM 9.2 MG/DL (8.5-10.1); CHLORIDE 106 MMOL/L (99-107); CREATININE 1.52 MG/DL (0.60-1.10); GLUCOSE 103 MG/DL (70-104); MAGNESIUM 1.5 MG/DL (1.5-2.4); POTASSIUM 3.4 MMOL/L (3.5-5.1); SODIUM 141 MMOL/L (135-145); TOTAL CARBON DIOXIDE 27.8 MMOL/L (24-32); eGFR 45 ML/MIN
[2020-10-20 06:32] LABS: BASOPHILS # (AUTO) 0.1 X10'3 (0-0.2); BASOPHILS % (AUTO) 0.9 % (0-1); EOSINOPHILS # (AUTO) 0.8 X10'3 (0-0.9); EOSINOPHILS % (AUTO) 4.7 % (0-6); HEMOGLOBIN 8.9 g/dl (14.0-17.9); LYMPHOCYTES # (AUTO) 1.4 X10'3 (1.1-4.8); LYMPHOCYTES % (AUTO) 8.5 % (21-51); MEAN CORPUSCULAR HEMOGLOBIN 31.4 PG (27.0-31.0); MEAN CORPUSCULAR VOLUME 95.3 FL (78-98); MONOCYTES # (AUTO) 1.3 X10'3 (0-0.9); MONOCYTES % (AUTO) 7.8 % (2-12); NEUTROPHILS # (AUTO) 12.9 X10'3 (1.8-7.7); NEUTROPHILS % (AUTO) 78.1 % (42-75); PLATELET COUNT 508 X10'3 (140-440); RED BLOOD COUNT 2.83 X10'6 (4.70-6.10); RED CELL DISTRIBUTION WIDTH 15.9 % (11.5-14.5); WHITE BLOOD COUNT 16.5 X10'3 (4.5-11.0)
[2020-10-20] MEDS: K and/or MAG REPLACEMENT MC SCH ×4 (06:59→20:58)
[2020-10-20 07:00] VITALS: BP 128/71
[2020-10-20 07:25] LABS: ANISOCYTOSIS 1+; PLATELET ESTIMATE INCREASED; POLYCHROMASIA FEW; TARGET CELLS 1+; TOTAL CELLS COUNTED 100
[2020-10-20] MEDS: allopurinol 100mg tablet PO SCH (07:57)
[2020-10-20] MEDS: aspirin 81mg tablet.DR PO SCH (07:57)
[2020-10-20] MEDS: multivitamins, therapeutics tablet PO SCH (07:58)
[2020-10-20] MEDS: cyanocobalamin 500mcg tablet PO SCH (07:58)
[2020-10-20] MEDS: potassium Cl 20 mEq SR tablet PO PRN ×3 (07:59→20:44)
[2020-10-20] MEDS: lactobacillus rhamnosus 10,000 MMU CELLS/CAPSULE PO SCH ×2 (07:59→20:44)
[2020-10-20] MEDS: carVEDilol 12.5mg tablet PO SCH ×2 (08:00→20:45)
[2020-10-20] MEDS: cholecalciferol (vitamin D3) 1,000 unit (25mcg) tablet PO SCH (08:00)
[2020-10-20] MEDS: furosemide 40mg tablet PO SCH ×2 (08:00→20:44)
[2020-10-20] MEDS: folic acid 0.4mg tablet PO SCH (08:01)
[2020-10-20] MEDS: lisinopril 5mg tablet PO SCH (08:02)
[2020-10-20] MEDS: heparin, porcine 5000 units/ml vial SQ SCH ×2 (08:04→20:47)
[2020-10-20] MEDS: CefTRIAXone 2gm/D5W 50ml BAG 50 ML IV SCH (09:28)
[2020-10-20 11:00] VITALS: BP 153/65
[2020-10-20] MEDS: ferrous sulfate 325mg tablet PO SCH ×2 (12:03→23:31)
--- NOTE | 2020-10-20 12:30 | NUR ---
Reassessment: Patient's PO intake slowly improving, recently up to 50-75% PO intake of meals. LBM 10/20. Pt continues with diarrhea, receiving tx for C.diff including Culturelle. Nutrition intervention recommendations to assist with stool thickening and bowel regularity have been d/w dietary, see below. Will continue to follow closely. Recommendations: 1) Change to low fiber/low residue diet as medically indicated in view of recent GI surgery 2) Banana WB, applesauce WL, yogurt BIDBD 3) Monitor need for ONS/additional protein pending trends in PO intake 4) Bowel care per rx 5) Weekly scaled weights Addendum: 10/20/20 at [address] Amended: Links added.
--- NOTE | 2020-10-20 18:19 | NUR ---
Report given to Jose DELGADO who is reassuming care. Pt awake in bed, no current concerns. Addendum: 10/20/20 at 1955 by Jose Ríos RN Report received from DANNY Flores
--- NOTE | 2020-10-20 18:44 | NUR ---
Patient in room [facility] 348. I have received report from DANNY Colon and had the opportunity to ask questions and assume patient care.
[2020-10-20 20:30] VITALS: BP 147/55
[2020-10-21] VITALS: BP 136/75
[2020-10-21] MEDS: vancomycin 125mg/5ml ORAL solution 5ml UD bottle PO SCH ×4 (02:16→19:57)
[2020-10-21] MEDS: potassium Cl 20 mEq SR tablet PO PRN (02:16)
[2020-10-21 05:47] LABS: BASOPHILS # (AUTO) 0.2 X10'3 (0-0.2); BASOPHILS % (AUTO) 1.2 % (0-1); EOSINOPHILS # (AUTO) 0.6 X10'3 (0-0.9); EOSINOPHILS % (AUTO) 4.4 % (0-6); HEMATOCRIT 25.5 % (42.0-52.0); HEMOGLOBIN 8.5 g/dl (14.0-17.9); LYMPHOCYTES # (AUTO) 1.2 X10'3 (1.1-4.8); LYMPHOCYTES % (AUTO) 8.4 % (21-51); MEAN CORPUSCULAR HEMOGLOBIN 31.6 PG (27.0-31.0); MEAN CORPUSCULAR HGB CONC 33.3 g/dL (33.0-36.5); MEAN CORPUSCULAR VOLUME 94.9 FL (78-98); MEAN PLATELET VOLUME 9.9 FL (7.4-10.4); MONOCYTES # (AUTO) 1.3 X10'3 (0-0.9); MONOCYTES % (AUTO) 9.1 % (2-12); NEUTROPHILS # (AUTO) 11.2 X10'3 (1.8-7.7); NEUTROPHILS % (AUTO) 76.9 % (42-75); PLATELET COUNT 478 X10'3 (140-440); RED BLOOD COUNT 2.69 X10'6 (4.70-6.10); RED CELL DISTRIBUTION WIDTH 16.2 % (11.5-14.5); WHITE BLOOD COUNT 14.6 X10'3 (4.5-11.0)
[2020-10-21 05:51] LABS: ALBUMIN 1.9 G/DL (3.4-5.0); ANION GAP 6 (8-16); BLOOD UREA NITROGEN 25 MG/DL (7-18); CALCIUM 9.3 MG/DL (8.5-10.1); CHLORIDE 107 MMOL/L (99-107); CREATININE 1.56 MG/DL (0.60-1.10); GLUCOSE 106 MG/DL (70-104); MAGNESIUM 1.4 MG/DL (1.5-2.4); POTASSIUM 3.9 MMOL/L (3.5-5.1); SODIUM 140 MMOL/L (135-145); TOTAL CARBON DIOXIDE 27.5 MMOL/L (24-32); eGFR 43 ML/MIN
--- NOTE | 2020-10-21 06:36 | NUR ---
Patient in room [facility] 348. I have received report from Jose DELGADO and had the opportunity to ask questions and assume patient care.
--- NOTE | 2020-10-21 06:45 | NUR ---
Problems reprioritized. Patient report given, questions answered & plan of care reviewed with DANNY Laboy.
[2020-10-21 07:00] VITALS: BP 136/78
[2020-10-21] MEDS: K and/or MAG REPLACEMENT MC SCH ×4 (08:00→20:00)
[2020-10-21] MEDS: CefTRIAXone 2gm/D5W 50ml BAG 50 ML IV SCH (08:57)
[2020-10-21] MEDS: aspirin 81mg tablet.DR PO SCH (08:57)
[2020-10-21] MEDS: metroNIDAZOLE-Flagyl 500mg/NS 100 ML IV SCH ×3 (08:57→23:36)
[2020-10-21] MEDS: cyanocobalamin 500mcg tablet PO SCH (08:58)
[2020-10-21] MEDS: cholecalciferol (vitamin D3) 1,000 unit (25mcg) tablet PO SCH (08:58)
[2020-10-21] MEDS: allopurinol 100mg tablet PO SCH (08:58)
[2020-10-21] MEDS: lactobacillus rhamnosus 10,000 MMU CELLS/CAPSULE PO SCH ×2 (08:58→19:57)
[2020-10-21] MEDS: furosemide 40mg tablet PO SCH ×2 (08:58→19:57)
[2020-10-21] MEDS: carVEDilol 12.5mg tablet PO SCH ×2 (08:59→19:57)
[2020-10-21] MEDS: lisinopril 5mg tablet PO SCH (08:59)
[2020-10-21] MEDS: multivitamins, therapeutics tablet PO SCH (08:59)
[2020-10-21] MEDS: heparin, porcine 5000 units/ml vial SQ SCH ×2 (08:59→19:57)
[2020-10-21] MEDS: folic acid 0.4mg tablet PO SCH (08:59)
[2020-10-21] MEDS: ferrous sulfate 325mg tablet PO SCH ×2 (11:35→23:36)
[2020-10-21 12:00] VITALS: BP 129/83
[2020-10-21 18:00] VITALS: BP 137/79
--- NOTE | 2020-10-21 18:12 | NUR ---
Patient in room [facility] 350A. I have received report from DANNY Laboy and had the opportunity to ask questions and assume patient care.
--- NOTE | 2020-10-21 18:30 | NUR ---
Problems reprioritized. Patient report given, questions answered & plan of care reviewed with Luna DELGADO.
[2020-10-22] VITALS: BP 126/75
[2020-10-22] MEDS: vancomycin 125mg/5ml ORAL solution 5ml UD bottle PO SCH ×2 (02:10→08:15)
[2020-10-22 05:56] LABS: BASOPHILS % (AUTO) 0.3 % (0-1); EOSINOPHILS # (AUTO) 0.5 X10'3 (0-0.9); EOSINOPHILS % (AUTO) 3.2 % (0-6); HEMATOCRIT 27.3 % (42.0-52.0); HEMOGLOBIN 9.2 g/dl (14.0-17.9); LYMPHOCYTES # (AUTO) 1.1 X10'3 (1.1-4.8); LYMPHOCYTES % (AUTO) 6.8 % (21-51); MEAN CORPUSCULAR HEMOGLOBIN 31.8 PG (27.0-31.0); MEAN CORPUSCULAR HGB CONC 33.6 g/dL (33.0-36.5); MEAN CORPUSCULAR VOLUME 94.9 FL (78-98); MEAN PLATELET VOLUME 9.8 FL (7.4-10.4); MONOCYTES # (AUTO) 1.2 X10'3 (0-0.9); MONOCYTES % (AUTO) 7.1 % (2-12); NEUTROPHILS # (AUTO) 13.6 X10'3 (1.8-7.7); NEUTROPHILS % (AUTO) 82.6 % (42-75); PLATELET COUNT 551 X10'3 (140-440); RED BLOOD COUNT 2.88 X10'6 (4.70-6.10); WHITE BLOOD COUNT 16.5 X10'3 (4.5-11.0)
[2020-10-22 06:04] LABS: ALBUMIN 1.9 G/DL (3.4-5.0); ANION GAP 5 (8-16); BLOOD UREA NITROGEN 24 MG/DL (7-18); BUN/CREATININE RATIO 15.8 (5.4-32.0); CALCIUM 9.7 MG/DL (8.5-10.1); CHLORIDE 106 MMOL/L (99-107); CREATININE 1.52 MG/DL (0.60-1.10); GLUCOSE 112 MG/DL (70-104); MAGNESIUM 1.6 MG/DL (1.5-2.4); POTASSIUM 4.4 MMOL/L (3.5-5.1); SODIUM 140 MMOL/L (135-145); eGFR 45 ML/MIN
--- NOTE | 2020-10-22 06:43 | NUR ---
Patient in room [facility] 344. I have received report from Luna DELGADO and had the opportunity to ask questions and assume patient care.
[2020-10-22 07:02] LABS: ANISOCYTOSIS 1+; LARGE PLATELETS FEW; PLATELET ESTIMATE INCREASED; TOTAL CELLS COUNTED 100
[2020-10-22 07:03] LABS: SCHISTOCYTES 1+; TARGET CELLS 1+; TOXIC GRANULATION 1+
[2020-10-22 07:04] LABS: STOMATOCYTES 1+
[2020-10-22 08:00] VITALS: BP 113/70
[2020-10-22] MEDS: K and/or MAG REPLACEMENT MC SCH ×2 (08:00)
[2020-10-22] MEDS: cholecalciferol (vitamin D3) 1,000 unit (25mcg) tablet PO SCH (08:17)
[2020-10-22] MEDS: lactobacillus rhamnosus 10,000 MMU CELLS/CAPSULE PO SCH (08:17)
[2020-10-22] MEDS: lisinopril 5mg tablet PO SCH (08:17)
[2020-10-22] MEDS: cyanocobalamin 500mcg tablet PO SCH (08:17)
[2020-10-22] MEDS: allopurinol 100mg tablet PO SCH (08:18)
[2020-10-22] MEDS: furosemide 40mg tablet PO SCH (08:18)
[2020-10-22] MEDS: aspirin 81mg tablet.DR PO SCH (08:18)
[2020-10-22] MEDS: folic acid 0.4mg tablet PO SCH (08:18)
[2020-10-22] MEDS: carVEDilol 12.5mg tablet PO SCH (08:18)
[2020-10-22] MEDS: multivitamins, therapeutics tablet PO SCH (08:18)
[2020-10-22] MEDS: heparin, porcine 5000 units/ml vial SQ SCH (08:19)
[2020-10-22] MEDS: metroNIDAZOLE-Flagyl 500mg/NS 100 ML IV SCH (08:19)
[2020-10-22] MEDS: CefTRIAXone 2gm/D5W 50ml BAG 50 ML IV SCH (09:26)
--- NOTE | 2020-10-22 10:45 | NUR ---
Patient IV taken out at discharge. No bleeding at this time, canula whole and intact upon inspection. Patient was transported to [facility] via [facility]. Patient left with all of his belongings and report was called at this time to Eleuterio.
[2020-10-22 11:00] VITALS: BP 105/48
== END 2020-10-22 10:40 | DRG 329 ==
LOC: ER 08:29 → ED HOLD 13:20 → SUR 3N 17:49
PROVIDERS: ADMIT Internal Medicine; ATTEND Internal Medicine
PROC: BW211ZZ Computerized Tomography (CT Scan) of Abdomen and Pelvis using Low Osmolar Contrast (ICD-10-PCS; 2020-10-09)
PROC: 0W9F30Z Drainage of Abdominal Wall with Drainage Device, Percutaneous Approach (ICD-10-PCS; 2020-10-09)
PROC: 0W9F0ZZ Drainage of Abdominal Wall, Open Approach (ICD-10-PCS; 2020-10-11)
PROC: 30233N1 Transfusion of Nonautologous Red Blood Cells into Peripheral Vein, Percutaneous Approach (ICD-10-PCS; 2020-10-11)
PROC: 0DBN0ZZ Excision of Sigmoid Colon, Open Approach (ICD-10-PCS; principal; 2020-10-11 14:24)
PROC: B32T1ZZ Computerized Tomography (CT Scan) of Left Pulmonary Artery using Low Osmolar Contrast (ICD-10-PCS; 2020-10-15)
PROC: B3201ZZ Computerized Tomography (CT Scan) of Thoracic Aorta using Low Osmolar Contrast (ICD-10-PCS; 2020-10-15)
PROC: B32S1ZZ Computerized Tomography (CT Scan) of Right Pulmonary Artery using Low Osmolar Contrast (ICD-10-PCS; 2020-10-15)
DX: K57.20 Diverticulitis of large intestine with perforation and abscess without bleeding (principal); J85.1 Abscess of lung with pneumonia; L02.211 Cutaneous abscess of abdominal wall; A04.72 Enterocolitis due to Clostridium difficile, not specified as recurrent; E44.0 Moderate protein-calorie malnutrition; N17.9 Acute kidney failure, unspecified; K56.7 Ileus, unspecified; D64.9 Anemia, unspecified; M79.602 Pain in left arm; Z20.822 Contact with and (suspected) exposure to COVID-19; E87.6 Hypokalemia; M10.9 Gout, unspecified; E86.0 Dehydration; F17.210 Nicotine dependence, cigarettes, uncomplicated; I12.9 Hypertensive chronic kidney disease with stage 1 through stage 4 chronic kidney disease, or unspecified chronic kidney disease; N18.9 Chronic kidney disease, unspecified; Z79.899 Other long term (current) drug therapy; Z68.20 Body mass index [BMI] 20.0-20.9, adult; Z79.82 Long term (current) use of aspirin
CPT/HCPCS: 36415; 36430; 49406; 71045; 71275; 73060; 73090; 74176; 74177; 76942; 80048; 80053; 80061; 80202; 81001; 82272; 82607; 82728; 82948; 83036; 83540; 83550; 83605; 83735; 84132; 84145; 84443; 84550; 85007; 85025; 85379; 85610; 85730; 86885; 86900; 86901; 86920; 87040; 87045; 87046; 87070; 87075; 87077; 87081; 87088; 87102; 87186; 87324; 87449; 87635; 88307; 92508; 92616; 93005; 93306; 93970; 93971; 94668; 96361; 96365; 96368; 97110; 97112; 97116; 97161; 97530; 97535; 99285; A4618; A6253; A6407; A6449; A7000; C1758; C9290; G0378; J0696; J1100; J1170; J1644; J2250; J2270; J2405; J2543; J2704; J2710; J3010; J3370; J3480; J3490; J7030; J7050; J7120; P9016; P9045; Q9963; Q9967